=== PATIENT | male | born 1945 | race Caucasian/White ===

== ENCOUNTER → 2016-06-25 | Day surgery (SDC) | payer OTHER ==
[~2016-06-25] VITALS: Ht 177.8 cm; Wt 103.0 kg
[~2016-06-25] MED LIST: ASPCH81X PO; BROM0.0911 OPR; CHOL4POW11 PO; CHOL4POW12; CLX20 PO; GABA1CAP5 PO; GABA600T PO; GLC/500 PO; LISI5TAB3 PO; MAGN400T6 PO; METFPOW PO; NTRGSL/4 UT; OMEG10007 PO; OMEP40CA PO; PILO5TAB10 PO; PRED1SUS OPR; WLC625 PO
[2016-06-25 12:31] VITALS: BP 149/82; PULSE 65; TEMP 36.5; Ht 177.8 cm; Wt 103.0 kg
--- NOTE | 2016-06-25 13:44 | OPERATIVE REPORT ---
DATE OF OPERATION: 06/25/2016 INDICATIONS FOR TILT TESTING: History of orthostatic hypotension and syncope. HISTORY OF PRESENT ILLNESS: This is a 71-year-old male who has had a number of episodes of syncope, he describes 4 episodes in 2016 and one more recently. This last one resulted in a sudden fall and injury. He has had an evaluation in the past including an event monitor during which he had a syncopal event without any arrhythmia or pause. Apparently, the rhythm was sinus during that episode. He has had his FRANCES inhibitor discontinued to help with orthostatic hypotension and his metoprolol reduced. He now presents for a tilt test to evaluate for orthostasis and vagal episodes. DESCRIPTION OF PROCEDURE: After obtaining informed consent for the procedure, he was placed on the tilt test, he remained flat for 15 minutes to allow calibration. The head of the bed was then tilted upright to 70 degrees and he remained in this position for 35 minutes upon which the bed was returned to supine. During this time, blood pressure was performed noninvasively and continuous heart rate and pulse oximetry were performed. FINDINGS: His baseline blood pressure prior to tilt was 149/82 with a heart rate of 64, oxygen saturation 96%. Immediately on a train obtaining a 70 degree upright tilt, his blood pressure was 148/85 with a heart rate of 67, and pulse ox of 94%. The blood pressure dropped slightly throughout the tilt to a low at 30 minutes of 128/73, heart rate remained unchanged at 67 and pulse oximetry unchanged at 93. He remained for 5 more minutes to see if that was a trend. However, his blood pressure was 130/81, heart rate 70 and pulse oximetry 92. He had been asymptomatic throughout. The head of the bed was placed supine at that point and his blood pressure on returning to supine position was 134/73, heart rate 62 and oxygen saturation 94%. At the conclusion of the tilt test, right and left carotid sinus massage was performed. With right carotid massage, his heart rate dropped to 57; with left carotid massage, his heart rate dropped to 61, no presyncopal symptoms. IMPRESSION: Essentially normal tilt test. Although his blood pressure dropped slightly during upright tilt, it did not rebound when being placed supine and did not meet criteria for orthostatic hypotension. His heart rate did not change significantly during the test. There was no evidence of right or left carotid sinus hypersensitivity. [facility]
== END | disposition home or self-care (01) ==
LOC: C.CATH 12:05
PROVIDERS: ATTEND Internal Medicine Cardiovascular Disease
DX: R55 Syncope and collapse (principal); I95.1 Orthostatic hypotension; I25.10 Atherosclerotic heart disease of native coronary artery without angina pectoris; I10 Essential (primary) hypertension; Z83.3 Family history of diabetes mellitus; Z82.49 Family history of ischemic heart disease and other diseases of the circulatory system; E11.9 Type 2 diabetes mellitus without complications; K21.9 Gastro-esophageal reflux disease without esophagitis; E78.5 Hyperlipidemia, unspecified; Z79.82 Long term (current) use of aspirin; Z79.899 Other long term (current) drug therapy; Z88.8 Allergy status to other drugs, medicaments and biological substances

== ENCOUNTER → 2016-08-21 | Day surgery (SDC) | payer OTHER ==
[2016-07-30 15:26] VITALS: Ht 177.8 cm; Wt 102.7 kg
[~2016-08-21] VITALS: Ht 177.8 cm; Wt 102.7 kg
[~2016-08-21] MED LIST changes: +500ML BSS 0.3ML EPI 1:1000PF IRRIG ONE; +ACETAMINOPHEN 325 MG TAB PO PRN; +AMVISC PLUS 0.8ML SYRINGE INT OCU ONE; +ATROPINE SULFATE 0.1 MG/ML 5ML SYR IV PRN; +BSS FLUSH ONE; -CHOL4POW12; +ENDOCOAT 0.85ML SYRINGE INT OCU ONE; +EpHEDrine SULFATE INJ 50 MG/ML AMP IV PRN; +EpINEphrine INJ 1MG/ML AMP 1 MG/ML AMP ONE; -GABA1CAP5 PO; +LACTATED RINGER'S 1000ML 500 ML IV SCH; +LIDOCAINE 4% OP SOLN DROP CHARGE ONE; +LIDOCAINE 4% OP SOLN DROP CHARGE OPR SCH; +LIDOCAINE HCL 1% MPF 2 ML VIAL ONE; -LISI5TAB3 PO; -METFPOW PO; +MIDAZOLAM HCL 1 MG/ML 2ML VIAL ONE; +MIX: 4ML BSS 1ML EPI 1:1000 PF TOP ONE; +MOXIFLOXACIN OPH SOLN PER DROP CHARGE ONE; -OMEG10007 PO; -OMEP40CA PO; -PILO5TAB10 PO; +POVIDONE-IODINE OP SOLN 30 ML BTL ONE; +PROPARACAINE 0.5% OP SOLN PER DROP CHARGE OPR SCH; +TOBRAMYCIN/DEXAMETHASONE OPH OINT PER APPLN CHARGE ONE; -WLC625 PO
[2016-08-21] MEDS: PHENYLEPHRINE HCL 2.5% OP SOLN PER DROP CHARGE OPR SCH ×3 (08:53→09:03)
[2016-08-21] MEDS: TROPICAMIDE 1% OP SOLN PER DROP CHARGE OPR SCH ×3 (08:54→09:04)
[2016-08-21] MEDS: CYCLOPENTOLATE HCL 1% OP SOLN PER DROP CHARGE OPR SCH ×3 (08:55→09:05)
[2016-08-21] MEDS: MOXIFLOXACIN OPH SOLN PER DROP CHARGE OPR SCH ×3 (08:56→09:06)
--- NOTE | 2016-08-21 09:09 | History & Physical Bridge - SC ---
H&P Re-Evaluation Bridge Note: I have examined the patient, reviewed the History & Physical and in the interval since the performance of the History & Physical I have noted the following changes of clinical significance: No changes noted
--- NOTE | 2016-08-21 10:09 | [facility] Post Operative Brief Note ---
Immediate Operative Summary Operative Date Aug 21, 2016. Pre-Operative Diagnosis Cataract Right Eye Post-Operative Diagnosis Same Procedure(s) Performed Right Cataract Phacoemulsification With Intraocular Lens Implant Surgeon Dr. Landers Greenhouse Laborer Surgeon(s) None Estimated Blood Loss 0 Findings right cataract Specimens None Complication(s) None Disposition
--- NOTE | 2016-08-21 10:10 | [facility] Operative Report ---
Operative Report Date of Service Aug 21, 2016. Operative Report Phaco with monofocal IOL DATE OF OPERATION: 08/21/16 PREOPERATIVE DIAGNOSIS: Senile nuclear cataract, right eye POSTOPERATIVE DIAGNOSIS: Senile nuclear cataract, right eye PROCEDURE PERFORMED: Phacoemulsification with intraocular lens implantation, right eye SURGEON: Dr. Owen Landers ANESTHESIA: Topical with 1% intracameral lidocaine and monitored anesthesia care COMPLICATIONS: None DESCRIPTION OF PROCEDURE: After positively identifying the patient both verbally and by wristband in the preoperative area, the right eye was marked as the operative eye. The patient was then brought back to the operating room by the anesthesia and nursing staff where they were given a drop of Lidocaine and betadine into the operative eye. They were then sterilely prepped and draped in the standard fashion typical for ophthalmic surgery. Steri-strips were placed along the upper eyelids to keep the lashes back, and a lid speculum was placed into the operative eye. At this point, a documented time out was performed with members of the ophthalmology, nursing, and anesthesia staffs all agreeing upon the correct patient, correct location for surgery, correct procedure, and correct type and power of intraocular lens to be implanted. The microscope was then swung into position. First, a paracentesis wound was made using a sideport blade. Then, in sequence, 1% preservative-free lidocaine followed by Endocoat viscoelastic was injected into the anterior chamber. Next , the main incision was made with a keratome blade in triplanar fashion. A sharp cystotome was introduced into the eye and used to create a tear in the anterior capsule, which was directed into a continuous curvilinear capsulorrhexis using Utrata forceps. Hydrodissection was then performed with BSS on a flat-tip cannula. Next, the phacoemulsification handpiece was introduced into the eye and used to remove the nucleus in a [id number] fashion. This was done without complication and then the irrigation-aspiration handpiece was introduced into the eye and used to remove all remaining cortical and epinuclear material. Amvisc was then injected into the anterior chamber as well as into the capsular bag and using the lens injector system, an MX60 20.0 D lens, serial number [id number], and expiration date 04/2019 was injected into the capsular bag and rotated into the correct position. Next, the irrigation- aspiration handpiece was used to remove all remaining Amvisc. BSS was used to hydrate the main wound, and then BSS was injected into the paracentesis site to reach physiologic pressure and then the main wound was checked and found to be watertight. The patient was given drops of Vigamox and Tobradex ointment into the operative eye, and then the surrounding area was cleaned and dried. A clear plastic shield was placed over the eye and the patient was then sat up and taken from the operating room by the anesthesia staff having tolerated the procedure well and suffering no complications. DISPOSITION: The patient was returned to the recovery room in stable condition. I attest to the content of the Intraoperative Record and any orders documented therein. Any exceptions are noted below.
--- NOTE | 2016-08-21 10:11 | Discharge Instructions-SurgCtr ---
Discharge Instructions Date of Service Aug 21, 2016. Visit Reason for Visit: Cataract Right Eye Discharge Discharge Diagnosis / Problem: right cataract Discharge Goals Goal(s): Decrease discomfort, Improve function Medications Stopped Medications Name(s): Stopped Metformin Activity Recommendations Activity Limitations: as noted below Anesthesia . Post Anesthesia Instructions: If you have had General Anesthesia or IV Sedation: * Do not drive today. * Resume driving when surgeon permits. * Do not make important decisions or sign legal documents today. * Call surgeon for: 1. Temperature elevations greater than 101 degrees F. 2. Uncontrollable pain. 3. Excessive bleeding. 4. Persistent nausea and vomiting. 5. Medication intolerance (nausea, vomiting or rash). * For nausea and vomiting use only clear liquids such as: tea, soda, bouillon until nausea subsides, then gradually increase diet as tolerated. * If you have any concerns or questions, call your surgeon's office. If physician is unavailable and it is an emergency, call 911 or go to the nearest emergency room. . Instructions / Follow-Up Instructions / Follow-Up ACTIVITY RECOMMENDATIONS: * Light activities. * You may walk outside, read, watch television. * You may notice redness on the white part of the eye and some blurry vision - this is normal. MEDICATIONS: Resume previous medications unless instructed otherwise by your surgeon. Start all eye drops at 12:30 pm today: * Eye drops (today): Prednisone - one drop in operative eye every 2 hours while awake Ofloxacin - one drop in operative eye every 2 hours while awake Bromfenac - one drop in operative eye daily SPECIAL CARE INSTRUCTIONS: * Tape plastic shield over eye to sleep at night. Call your doctor at with any concerns or problems. FOLLOW UP VISIT: Follow-up with Dr Landers at [place] office as scheduled. Diet Recommendations Home Diet: no limitations Procedures Procedures Performed: Right Cataract Phacoemulsification With Intraocular Lens Implant Pending Studies Studies pending at discharge: no Medical Emergencies . Who to Call and When: Medical Emergencies: If at any time you feel your situation is an emergency, please call 911 immediately. . Non-Emergent Contact Non-Emergency issues call your: Surgeon . . "Provider Documentation" section prepared by Owen Landers.
[2016-08-21 10:12] VITALS: TEMP 36.6
--- NOTE | 2016-08-21 10:34 | Anesthesia Progress Nt - [facility] ---
Anesthesia Post Op Note Date & Time Aug 21, 2016 at 10:35 Vital Signs Pain Intensity: 0 Vital Signs Past 12 Hours Date Time Temp Pulse Resp B/P Pulse Ox O2 Delivery O2 Flow Rate FiO2 08/21/16 10:12 36.6 60 16 156/92 98 Room Air 08/21/16 09:10 36.8 62 20 160/84 97 Room Air Notes Mental Status: alert / awake / arousable, participated in evaluation Pt Amnestic to Procedure: Yes Nausea / Vomiting: adequately controlled Pain: adequately controlled Airway Patency, RR, SpO2: stable & adequate BP & HR: stable & adequate Hydration State: stable & adequate Anesthetic Complications: no major complications apparent
[2016-08-21 10:37] VITALS: BP 142/82; PULSE 57; O2SAT 96
== END | disposition home or self-care (01) ==
LOC: X.SURG 08:35
PROVIDERS: ATTEND Ophthalmology
DX: H25.11 Age-related nuclear cataract, right eye (principal); I10 Essential (primary) hypertension; E11.9 Type 2 diabetes mellitus without complications; I51.9 Heart disease, unspecified

== ENCOUNTER → 2016-09-02 | Outpatient (CLI) | payer OTHER ==
[~2016-09-02] MED LIST changes: -500ML BSS 0.3ML EPI 1:1000PF IRRIG ONE; -ACETAMINOPHEN 325 MG TAB PO PRN; -AMVISC PLUS 0.8ML SYRINGE INT OCU ONE; -ATROPINE SULFATE 0.1 MG/ML 5ML SYR IV PRN; -BSS FLUSH ONE; -ENDOCOAT 0.85ML SYRINGE INT OCU ONE; -EpHEDrine SULFATE INJ 50 MG/ML AMP IV PRN; -EpINEphrine INJ 1MG/ML AMP 1 MG/ML AMP ONE; -LACTATED RINGER'S 1000ML 500 ML IV SCH; -LIDOCAINE 4% OP SOLN DROP CHARGE ONE; -LIDOCAINE 4% OP SOLN DROP CHARGE OPR SCH; -LIDOCAINE HCL 1% MPF 2 ML VIAL ONE; -MIDAZOLAM HCL 1 MG/ML 2ML VIAL ONE; -MIX: 4ML BSS 1ML EPI 1:1000 PF TOP ONE; -MOXIFLOXACIN OPH SOLN PER DROP CHARGE ONE; -POVIDONE-IODINE OP SOLN 30 ML BTL ONE; -PROPARACAINE 0.5% OP SOLN PER DROP CHARGE OPR SCH; -TOBRAMYCIN/DEXAMETHASONE OPH OINT PER APPLN CHARGE ONE
[2016-09-02 14:05] LABS: ESTIMATED AVERAGE GLUCOSE 166 mg/dl; HA1C FLAG Normal (Normal)
[2016-09-02 14:44] LABS: ALT/SGPT 59 U/L (12-78); AST/SGOT 48 U/L (15-37); BLOOD UREA NITROGEN 16 mg/dl (7-18); BUN/CREATININE RATIO 17.2 (10-20); CALCIUM 9.1 mg/dl (8.5-10.1); CARBON DIOXIDE 30 mmol/L (21-32); CHLORIDE 104 mmol/L (98-107); CHOLESTEROL 228 mg/dl (0-200); CREATININE 0.93 mg/dl (0.60-1.40); GLUCOSE 161 mg/dl (70-99); MAGNESIUM 2.1 mg/dl (1.8-2.4); SODIUM 139 mmol/L (136-145); TRIGLYCERIDES 218 mg/dl (0-150); VERY LOW DENSITY LIPOPROT CALC 44 mg/dl
[2016-09-02 15:11] LABS: ALB/GLOB RATIO 1.2 (0.9-2); ALKALINE PHOSPHATASE 74 U/L (45-117); CHOLESTEROL/HDL RATIO 4.9; HDL CHOLESTEROL 47 mg/dl; LDL CHOLESTEROL CALCULATED 137 mg/dl
== END | disposition home or self-care (01) ==
LOC: C.LABMFLN 08:49
PROVIDERS: ATTEND Family Medicine
DX: E11.9 Type 2 diabetes mellitus without complications (principal); E78.5 Hyperlipidemia, unspecified; I10 Essential (primary) hypertension; E83.42 Hypomagnesemia; R55 Syncope and collapse

== ENCOUNTER → 2016-09-04 | Day surgery (SDC) | payer OTHER ==
[2016-09-03 07:46] VITALS: Ht 177.8 cm; Wt 102.7 kg
[~2016-09-04] VITALS: Ht 177.8 cm; Wt 102.7 kg
[~2016-09-04] MED LIST changes: +500ML BSS 0.3ML EPI 1:1000PF IRRIG ONE; +ACETAMINOPHEN 325 MG TAB PO PRN; +AMVISC PLUS 0.8ML SYRINGE INT OCU ONE; +ATROPINE SULFATE 0.1 MG/ML 5ML SYR IV PRN; +BSS FLUSH ONE; +ENDOCOAT 0.85ML SYRINGE INT OCU ONE; +EpHEDrine SULFATE INJ 50 MG/ML AMP IV PRN; +EpINEphrine INJ 1MG/ML AMP 1 MG/ML AMP ONE; +FENTANYL CITRATE INJ 50 MCG/1 ML 2 ML VIAL IV PRN; +FLUMAZENIL 0.1 MG/1 ML 10 ML VIAL IV PRN; +HYDROmorphone INJ 2 MG/ML SYR/VIAL IV PRN; +LABETALOL HCL IV 5 MG/ML 20ML IV PRN; +LACTATED RINGER'S 1000ML 500 ML IV SCH; +LIDOCAINE 4% OP SOLN DROP CHARGE ONE; +LIDOCAINE 4% OP SOLN DROP CHARGE OPL SCH; +LIDOCAINE HCL 1% MPF 2 ML VIAL ONE; +MEPERIDINE HCL 25 MG/ML CARP IV PRN; +MIDAZOLAM HCL 1 MG/ML 2ML VIAL ONE; +MIX: 4ML BSS 1ML EPI 1:1000 PF TOP ONE; +MOXIFLOXACIN OPH SOLN PER DROP CHARGE ONE; +NALOXONE HCL 0.4 MG/1 ML VIAL/CARP IV PRN; +ONDANSETRON INJ 2 MG/ML 2 ML VIAL IV PRN; +PHENYLEPHRINE 100MCG/ML 5ML SYR IV PRN; +POVIDONE-IODINE OP SOLN 30 ML BTL ONE; +PROPARACAINE 0.5% OP SOLN PER DROP CHARGE OPL SCH; +TOBRAMYCIN/DEXAMETHASONE OPH OINT PER APPLN CHARGE ONE
[2016-09-04] MEDS: PHENYLEPHRINE HCL 2.5% OP SOLN PER DROP CHARGE OPL SCH ×3 (09:04→09:14)
[2016-09-04] MEDS: TROPICAMIDE 1% OP SOLN PER DROP CHARGE OPL SCH ×3 (09:05→09:15)
[2016-09-04] MEDS: CYCLOPENTOLATE HCL 1% OP SOLN PER DROP CHARGE OPL SCH ×3 (09:06→09:16)
[2016-09-04] MEDS: MOXIFLOXACIN OPH SOLN PER DROP CHARGE OPL SCH ×3 (09:07→09:27)
--- NOTE | 2016-09-04 09:21 | History & Physical Bridge - SC ---
H&P Re-Evaluation Bridge Note: I have examined the patient, reviewed the History & Physical and in the interval since the performance of the History & Physical I have noted the following changes of clinical significance: No changes noted. He is going to be having cataract surgery on his left eye today.
--- NOTE | 2016-09-04 10:07 | [facility] Post Operative Brief Note ---
Immediate Operative Summary Operative Date Sep 04, 2016. Pre-Operative Diagnosis Left Eye Cataract Post-Operative Diagnosis SAME Procedure(s) Performed Left Cataract Phacoemulsification With Intraocular Lens Implant Surgeon Dr Landers Gearcase Assembler Surgeon(s) none Estimated Blood Loss 0 Findings left cataract Specimens none Complication(s) None Disposition
[2016-09-04 10:08] VITALS: TEMP 36.3
--- NOTE | 2016-09-04 10:08 | [facility] Operative Report ---
Operative Report Date of Service Sep 04, 2016. Operative Report Phaco with monofocal IOL DATE OF OPERATION: 09/04/16 PREOPERATIVE DIAGNOSIS: Senile nuclear cataract, left eye POSTOPERATIVE DIAGNOSIS: Senile nuclear cataract, left eye PROCEDURE PERFORMED: Phacoemulsification with intraocular lens implantation, left eye SURGEON: Dr. Owen Landers ANESTHESIA: Topical with 1% intracameral lidocaine and monitored anesthesia care COMPLICATIONS: None DESCRIPTION OF PROCEDURE: After positively identifying the patient both verbally and by wristband in the preoperative area, the left eye was marked as the operative eye. The patient was then brought back to the operating room by the anesthesia and nursing staff where they were given a drop of Lidocaine and betadine into the operative eye. They were then sterilely prepped and draped in the standard fashion typical for ophthalmic surgery. Steri-strips were placed along the upper eyelids to keep the lashes back, and a lid speculum was placed into the operative eye. At this point, a documented time out was performed with members of the ophthalmology, nursing, and anesthesia staffs all agreeing upon the correct patient, correct location for surgery, correct procedure, and correct type and power of intraocular lens to be implanted. The microscope was then swung into position. First, a paracentesis wound was made using a sideport blade. Then, in sequence, 1% preservative-free lidocaine followed by Endocoat viscoelastic was injected into the anterior chamber. Next , the main incision was made with a keratome blade in triplanar fashion. A sharp cystotome was introduced into the eye and used to create a tear in the anterior capsule, which was directed into a continuous curvilinear capsulorrhexis using Utrata forceps. Hydrodissection was then performed with BSS on a flat-tip cannula. Next, the phacoemulsification handpiece was introduced into the eye and used to remove the nucleus in a [id number] fashion. This was done without complication and then the irrigation-aspiration handpiece was introduced into the eye and used to remove all remaining cortical and epinuclear material. Amvisc was then injected into the anterior chamber as well as into the capsular bag and using the lens injector system, an MX60 21.5 D lens, serial number [id number], and expiration date 01/2019 was injected into the capsular bag and rotated into the correct position. Next, the irrigation- aspiration handpiece was used to remove all remaining Amvisc. BSS was used to hydrate the main wound, and then BSS was injected into the paracentesis site to reach physiologic pressure and then the main wound was checked and found to be watertight. The patient was given drops of Vigamox and Tobradex ointment into the operative eye, and then the surrounding area was cleaned and dried. A clear plastic shield was placed over the eye and the patient was then sat up and taken from the operating room by the anesthesia staff having tolerated the procedure well and suffering no complications. DISPOSITION: The patient was returned to the recovery room in stable condition. I attest to the content of the Intraoperative Record and any orders documented therein. Any exceptions are noted below.
--- NOTE | 2016-09-04 10:09 | Discharge Instructions-SurgCtr ---
Discharge Instructions Date of Service Sep 04, 2016. Visit Reason for Visit: Left Cataract Discharge Discharge Diagnosis / Problem: left cataract Discharge Goals Goal(s): Decrease discomfort, Improve function Activity Recommendations Activity Limitations: as noted below Anesthesia . Post Anesthesia Instructions: If you have had General Anesthesia or IV Sedation: * Do not drive today. * Resume driving when surgeon permits. * Do not make important decisions or sign legal documents today. * Call surgeon for: 1. Temperature elevations greater than 101 degrees F. 2. Uncontrollable pain. 3. Excessive bleeding. 4. Persistent nausea and vomiting. 5. Medication intolerance (nausea, vomiting or rash). * For nausea and vomiting use only clear liquids such as: tea, soda, bouillon until nausea subsides, then gradually increase diet as tolerated. * If you have any concerns or questions, call your surgeon's office. If physician is unavailable and it is an emergency, call 911 or go to the nearest emergency room. . Instructions / Follow-Up Instructions / Follow-Up ACTIVITY RECOMMENDATIONS: * Light activities. * You may walk outside, read, watch television. * You may notice redness on the white part of the eye and some blurry vision - this is normal. MEDICATIONS: Resume previous medications unless instructed otherwise by your surgeon. Start all eye drops at 12:00 pm today: * Eye drops (today): Prednisone - one drop in operative eye every 2 hours while awake Ofloxacin - one drop in operative eye every 2 hours while awake Bromfenac - one drop in operative eye daily SPECIAL CARE INSTRUCTIONS: * Tape plastic shield over eye to sleep at night. Call your doctor at with any concerns or problems. FOLLOW UP VISIT: Follow-up with Dr Landers at [facility] as scheduled. Diet Recommendations Home Diet: no limitations Procedures Procedures Performed: Left Cataract Phacoemulsification With Intraocular Lens Implant Pending Studies Studies pending at discharge: no Medical Emergencies . Who to Call and When: Medical Emergencies: If at any time you feel your situation is an emergency, please call 911 immediately. . Non-Emergent Contact Non-Emergency issues call your: Surgeon . . "Provider Documentation" section prepared by Owen Landers.
[2016-09-04 10:35] VITALS: BP 137/81; PULSE 61; O2SAT 96
--- NOTE | 2016-09-04 10:40 | Anesthesia Progress Nt - [facility] ---
Anesthesia Post Op Note Date & Time Sep 04, 2016 at 10:40 Vital Signs Pain Intensity: 0 Vital Signs Past 12 Hours Date Time Temp Pulse Resp B/P Pulse Ox O2 Delivery O2 Flow Rate FiO2 09/04/16 10:08 36.3 58 16 147/83 98 Room Air 09/04/16 08:56 36.7 63 16 151/84 97 Room Air Notes Mental Status: alert / awake / arousable, participated in evaluation Pt Amnestic to Procedure: Yes Nausea / Vomiting: adequately controlled Pain: adequately controlled Airway Patency, RR, SpO2: stable & adequate BP & HR: stable & adequate Hydration State: stable & adequate Anesthetic Complications: no major complications apparent
== END | disposition home or self-care (01) ==
LOC: X.SURG 08:26
PROVIDERS: ATTEND Ophthalmology
DX: H25.12 Age-related nuclear cataract, left eye (principal); I10 Essential (primary) hypertension; E11.9 Type 2 diabetes mellitus without complications; I51.9 Heart disease, unspecified; Z83.3 Family history of diabetes mellitus

== ENCOUNTER → 2017-02-03 | Outpatient (CLI) | payer OTHER ==
[~2017-02-03] MED LIST changes: -500ML BSS 0.3ML EPI 1:1000PF IRRIG ONE; -ACETAMINOPHEN 325 MG TAB PO PRN; -AMVISC PLUS 0.8ML SYRINGE INT OCU ONE; -ATROPINE SULFATE 0.1 MG/ML 5ML SYR IV PRN; -BSS FLUSH ONE; -ENDOCOAT 0.85ML SYRINGE INT OCU ONE; -EpHEDrine SULFATE INJ 50 MG/ML AMP IV PRN; -EpINEphrine INJ 1MG/ML AMP 1 MG/ML AMP ONE; -FENTANYL CITRATE INJ 50 MCG/1 ML 2 ML VIAL IV PRN; -FLUMAZENIL 0.1 MG/1 ML 10 ML VIAL IV PRN; -HYDROmorphone INJ 2 MG/ML SYR/VIAL IV PRN; -LABETALOL HCL IV 5 MG/ML 20ML IV PRN; -LACTATED RINGER'S 1000ML 500 ML IV SCH; -LIDOCAINE 4% OP SOLN DROP CHARGE ONE; -LIDOCAINE 4% OP SOLN DROP CHARGE OPL SCH; -LIDOCAINE HCL 1% MPF 2 ML VIAL ONE; -MEPERIDINE HCL 25 MG/ML CARP IV PRN; -MIDAZOLAM HCL 1 MG/ML 2ML VIAL ONE; -MIX: 4ML BSS 1ML EPI 1:1000 PF TOP ONE; -MOXIFLOXACIN OPH SOLN PER DROP CHARGE ONE; -NALOXONE HCL 0.4 MG/1 ML VIAL/CARP IV PRN; -ONDANSETRON INJ 2 MG/ML 2 ML VIAL IV PRN; -PHENYLEPHRINE 100MCG/ML 5ML SYR IV PRN; -POVIDONE-IODINE OP SOLN 30 ML BTL ONE; -PROPARACAINE 0.5% OP SOLN PER DROP CHARGE OPL SCH; -TOBRAMYCIN/DEXAMETHASONE OPH OINT PER APPLN CHARGE ONE
[2017-02-03 13:26] LABS: ALT/SGPT 67 U/L (12-78); BLOOD UREA NITROGEN 12 mg/dl (7-18); BUN/CREATININE RATIO 14.1 (10-20); CALCIUM 9.1 mg/dl (8.5-10.1); CARBON DIOXIDE 28 mmol/L (21-32); CHLORIDE 104 mmol/L (98-107); CHOLESTEROL 197 mg/dl (0-200); CREATININE 0.83 mg/dl (0.60-1.40); GLUCOSE 147 mg/dl (70-99); POTASSIUM 4.4 mmol/L (3.5-5.1); SODIUM 138 mmol/L (136-145)
[2017-02-03 13:33] LABS: ALB/GLOB RATIO 1.1 (0.9-2); ALKALINE PHOSPHATASE 66 U/L (45-117); AST/SGOT 59 U/L (15-37); CHOLESTEROL/HDL RATIO 4.2; HDL CHOLESTEROL 47 mg/dl; LDL CHOLESTEROL CALCULATED 118 mg/dl; PROSTATE SPECIFIC ANTIGEN 0.932 ng/ml (0.000-4.000); TRIGLYCERIDES 158 mg/dl (0-150); VERY LOW DENSITY LIPOPROT CALC 32 mg/dl
[2017-02-03 13:35] LABS: ESTIMATED AVERAGE GLUCOSE 177 mg/dl; HA1C FLAG Normal (Normal)
[2017-02-03 13:49] LABS: RATIO 10.8 mcg/mg (0-30.0)
== END | disposition home or self-care (01) ==
LOC: C.LABMFLN 08:42
PROVIDERS: ATTEND Family Medicine
DX: E78.5 Hyperlipidemia, unspecified (principal); I25.10 Atherosclerotic heart disease of native coronary artery without angina pectoris; E11.51 Type 2 diabetes mellitus with diabetic peripheral angiopathy without gangrene; Z12.5 Encounter for screening for malignant neoplasm of prostate; E83.42 Hypomagnesemia

== ENCOUNTER → 2017-02-10 | Outpatient (CLI) | payer OTHER ==
[2017-02-10 18:19] LABS: BASO % 0.5 %; BASO ABS # 0.03 K/uL (0-0.2); COMPLETE YES; EOS % 3.2 %; HEMATOCRIT 39.5 % (42-52); IG% 0.4 %; LYMPH % 18.8 %; LYMPH ABS # 1.05 K/uL (1.2-3.4); MEAN CELL VOLUME 92.3 fL (80-100); MEAN CORPUSCULAR HEMOGLOBIN 31.1 pg (25-34); MEAN CORPUSCULAR HGB CONC 33.7 g/dl (32-36); MEAN PLATELET VOLUME 9.2 fL (7.4-10.4); MONO % 9.5 %; NEUT % 67.6 %; PLATELET COUNT 321 K/uL (130-400); RED BLOOD COUNT 4.28 M/uL (4.7-6.1); WHITE BLOOD COUNT 5.58 K/uL (4.8-10.8)
== END | disposition home or self-care (01) ==
LOC: C.LABMFLN 11:42
PROVIDERS: ATTEND Family Medicine
DX: R06.09 Other forms of dyspnea (principal)

== ENCOUNTER → 2017-06-10 | Outpatient (CLI) | payer OTHER ==
[2017-06-10 13:22] LABS: HEMOGLOBIN A1C 7.7 % (4.5-5.6)
[2017-06-10 13:33] LABS: ALBUMIN 3.8 gm/dl (3.4-5.0); ALT/SGPT 93 U/L (12-78); BLOOD UREA NITROGEN 17 mg/dl (7-18); CALCIUM 9.3 mg/dl (8.5-10.1); CARBON DIOXIDE 29 mmol/L (21-32); CHOLESTEROL 250 mg/dl (0-200); CREATININE 0.93 mg/dl (0.60-1.40); GLUCOSE 178 mg/dl (70-99); POTASSIUM 4.7 mmol/L (3.5-5.1); SODIUM 137 mmol/L (136-145)
[2017-06-10 13:36] LABS: ALKALINE PHOSPHATASE 52 U/L (45-117); AST/SGOT 70 U/L (15-37); LDL CHOLESTEROL CALCULATED 173 mg/dl; TOTAL PROTEIN 6.9 gm/dl (6.4-8.2)
== END | disposition home or self-care (01) ==
LOC: C.LABMFLN 07:07
PROVIDERS: ATTEND Family Medicine
DX: E11.9 Type 2 diabetes mellitus without complications (principal); E78.5 Hyperlipidemia, unspecified; I10 Essential (primary) hypertension; E83.42 Hypomagnesemia

== ENCOUNTER → 2017-10-07 | Outpatient (CLI) | payer OTHER ==
[2017-10-07 14:05] LABS: HEMOGLOBIN A1C 6.5 % (4.5-5.6)
[2017-10-07 14:56] LABS: ALBUMIN 3.6 gm/dl (3.4-5.0); ALT/SGPT 155 U/L (12-78); AST/SGOT 125 U/L (15-37); BLOOD UREA NITROGEN 12 mg/dl (7-18); CALCIUM 9.2 mg/dl (8.5-10.1); CARBON DIOXIDE 30 mmol/L (21-32); CHOLESTEROL 190 mg/dl (0-200); CREATININE 0.76 mg/dl (0.60-1.40); GLUCOSE 126 mg/dl (70-99); POTASSIUM 4.4 mmol/L (3.5-5.1); SODIUM 139 mmol/L (136-145)
[2017-10-07 15:03] LABS: ALKALINE PHOSPHATASE 59 U/L (45-117); LDL CHOLESTEROL CALCULATED 110 mg/dl; TOTAL PROTEIN 6.9 gm/dl (6.4-8.2)
== END | disposition home or self-care (01) ==
LOC: C.LABMFLN 08:23
PROVIDERS: ATTEND Family Medicine
DX: E78.5 Hyperlipidemia, unspecified (principal); I10 Essential (primary) hypertension; K76.0 Fatty (change of) liver, not elsewhere classified; E11.51 Type 2 diabetes mellitus with diabetic peripheral angiopathy without gangrene; E83.42 Hypomagnesemia

== ENCOUNTER → 2017-12-18 | Outpatient (CLI) | payer OTHER ==
[2017-12-18 18:22] LABS: ALBUMIN 3.8 gm/dl (3.4-5.0); TOTAL PROTEIN 6.7 gm/dl (6.4-8.2)
== END | disposition home or self-care (01) ==
LOC: C.LABMFLN 15:19
PROVIDERS: ATTEND Internal Medicine Gastroenterology
DX: R94.5 Abnormal results of liver function studies (principal)

== ENCOUNTER → 2018-01-13 | Outpatient (CLI) | payer OTHER ==
[2018-01-13 13:34] LABS: HEMOGLOBIN A1C 7.3 % (4.5-5.6)
[2018-01-13 14:14] LABS: ALBUMIN 3.7 gm/dl (3.4-5.0); ALKALINE PHOSPHATASE 60 U/L (45-117); ALT/SGPT 177 U/L (12-78); AST/SGOT 118 U/L (15-37); BLOOD UREA NITROGEN 13 mg/dl (7-18); CALCIUM 9.5 mg/dl (8.5-10.1); CARBON DIOXIDE 28 mmol/L (21-32); CHOLESTEROL 202 mg/dl (0-200); CREATININE 0.85 mg/dl (0.60-1.40); GLUCOSE 159 mg/dl (70-99); LDL CHOLESTEROL CALCULATED 124 mg/dl; POTASSIUM 4.2 mmol/L (3.5-5.1); SODIUM 137 mmol/L (136-145); TOTAL PROTEIN 7.2 gm/dl (6.4-8.2)
== END | disposition home or self-care (01) ==
LOC: C.LABMFLN 09:40
PROVIDERS: ATTEND Family Medicine
DX: E11.51 Type 2 diabetes mellitus with diabetic peripheral angiopathy without gangrene (principal); R74.0 Nonspecific elevation of levels of transaminase and lactic acid dehydrogenase [LDH]

== ENCOUNTER 2018-08-27 09:20 | Observation (INO) ==
--- NOTE | 2018-08-27 11:23 | History & Physical Bridge Note ---
Date of Service August 27, 2018 History & Physical Bridge Note I have examined the patient, reviewed the History & Physical and in the interval since the performance of the History & Physical I have noted the following changes of clinical significance: Symptoms have improved on nitrate therapy, but anginal symptoms continue to occur. Otherwise, no changes noted.
--- NOTE | 2018-08-27 11:24 | Pre Anesthesia Assessment ---
Date of Service August 27, 2018 Pre Sedation Assessment Vital Signs Temp Pulse Resp BP Pulse Ox 08/27/18 10:38 36.6 C 61 18 171/80 H 97 Cardiovascular + bradycardic Respiratory normal respiratory effort, lungs clear to auscultation Pre-Sedation Airway Assessment Smoking Status: Never smoker Hx Sleep Apnea: No Short, Thick Neck: No Thyromental Distance: > or= 3.5 Finger Breadths Oral Cavity: + WNL Mallampati Class: III ASA: ASA3 NPO Status Date of Last Intake of Fluids: 08/26/18 Time of Last Intake of Fluids: 19:00 Date of Last Intake of Solid Food: 08/26/18 Time of Last Intake of Solid Foods: 19:00 Procedure Planning Contraindications for Sedation: none Current Medications Reviewed: Yes Notes The planned sedation has been discussed with the patient. Informed Consent was obtained. I have identified the patient, determined the appropriateness of sedation and have assessed the patient immediately prior to the procedure. All medicine(s) and interventions are by my order.
[2018-08-27] MEDS ORDERED: NiCARDipine HCL INJ 2.5 MG/ML 10 ML AMP ONE (12:53)
[2018-08-27] MEDS ORDERED: HEPARIN (PORCINE) 1000 UNIT/ML 10 ML (CATH LAB USE ONLY) ONE (12:53)
[2018-08-27] MEDS ORDERED: MIDAZOLAM HCL 1 MG/ML 2ML VIAL ONE (12:53)
[2018-08-27] MEDS ORDERED: fentaNYL citrate 100 MCG/2 ML VIAL ONE (12:53)
[2018-08-27] MEDS ORDERED: NITROGLYCERIN/D5W 100MCG/ML 20ML SYR ONE (12:54)
--- NOTE | 2018-08-27 14:45 | Cardiac Catheterization ---
Cardiac Cath Procedure Full Procedure Date August 27, 2018 Pre-Procedure Diagnosis Pre-Procedure Diagnosis: Angina and CAD AUC Score AUC Score: 7 Post-Procedure Diagnosis Post-Procedure Diagnosis: Severe CAD Procedure(s) Performed Procedure(s) Performed: Coronary Angiography Tray Setter Emiliano Cash MD Financial Assistance Specialist(s) Twin Ambrosio Estimated Blood Loss Estimated Blood Loss: < 25 ml Medication(s) Medication(s): Fentanyl, Lidocaine 1%, Nicardipine and Versed Summary of Findings Coronary angiography: 1. Left main coronary artery: The LMCA is large in caliber and short in length. No significant CAD. 2. Left anterior descending: The LAD is a large caliber vessel that wraps around the apex. Proximal and mid LAD stents noted. Proximal LAD stent with 30-40% in stent restenoses. Mid LAD stent 40% in stent restenoses. Just distal to the mid LAD stent there is a 95-99% stenosis, involving the origin of very small caliber D2 vessel. Distal LAD 30%. Apical LAD 70-80%. MAYKEL 3 flow. Large D1 without significant CAD. 3. Circumflex: The circumflex is large and dominant. Proximal circumflex 30%. Mid circumflex 50%. There is a medium caliber high OM1 without significant CAD. There is a small caliber OM2 without CAD. Proximal PL 130-40%. PL to and circumflex PDA without significant CAD. 4. Right coronary artery: The RCA is small and non dominant. Proximal RCA 20%. Mid RCA stent 10% in stent restenoses. Sedation start time: 1:33 p.m. Sedation end time: 2:02 p.m. Procedural notes: 1. Coronary angiography was performed via the right radial artery with 6 Sudanese JL 3.5 and JR4 diagnostic catheters. 2. Aortic valve was not crossed. Documented mild aortic stenosis as an outpatient on echocardiogram. Impression: 1. Severe CAD involving mid LAD and apical LAD. 2. Nonobstructive CAD involving LAD stents, circumflex, and RCA systems. Plan: 1. Dr. Haas of interventional Cardiology was asked to review the images and consider PCI of mid LAD. Hemodynamics Rest Ao:: 132/67 Final Ao: 147/77 LV: n/a Recommendations Recommendations: PCI without planned CABG Specimens Specimens: None Radiation Exposure (mGy) 1394 mGy. Fluoro time 9.2 min. Contrast (mls) 50 ml Procedural Complication(s) None Disposition Program Support Specialist Holding/Recovery (remains in cath laboratory technician for PCI) ACC Data: Program Support Specialist Cardiac Status Clinical evaluation leading to the procedure CAD Presenation: Stable angina Anginal Classification: CCS III Heart Failure: No Cardiogenic Shock within 24 Hours: No Cardiac Arrest within 24 Hours: No Imaging Studies Past 6 Months: Yes (echo) Stress Studies Past 6 Months: No Standard Exercise Test: No Stress Echocardiogram: No Stress Testing w/SPECT MPI: No Cardiac CTA: No Coronary Anatomy Dominant: Left Left Main (% Stenosis): Normal LAD (% Stenosis): Proximal (30-40% instent), Mid (40% instent followed by 95-99% distal to stent edge) and Distal (30%. Apical LAD 70-80%) D1 (% Stenosis): Normal Circumflex (% Stenosis): Proximal (30%) and Mid (50%) OM1 (% Stenosis): Normal OM2 (% Stenosis): Normal L PL1 (% Stenosis): Proximal (30-40%) L PL2 (% Stenosis): Normal L PDA (% Stenosis): Normal RCA (% Stenosis): Proximal (20%) and Mid (10% in-stent) Left Ventricular Angiography EF (%): n/a Diagnostic Physicians Name: Emiliano Cash MD Status: Elective Closure Device Percutaneous Entry Location: Radial Closure Device: Radial Band (after PCI) Recommendations: PCI without planned CABG
[2018-08-27] MEDS ORDERED: TICAGRELOR 90 MG TAB PO ONE (14:56)
--- NOTE | 2018-08-27 15:10 | Post Anesthesia Assessment ---
Date of Service August 27, 2018 Post Sedation Assessment Vital Signs Temp Pulse Resp BP Pulse Ox 08/27/18 10:38 36.6 C 61 18 171/80 H 97 Recovery Score Activity: Moves 4 extremities Respiration: Deep Breath/Cough Circulation: +/-20% PreAnes Value Consciousness: Fully Awake Oxygen Saturation: O2 needed for >90% Discharge Sedation Level of Care: Fast Track Phase II Post Sedation Plan On clinical assessment, the patient appears to have tolerated the sedation without complications. Patient is recovering as anticipated. Patient will continue to be monitored by nursing and may be discharged when sedation discharge criteria are met per below protocol. Upon Completions of procedure and additional 15 minutes continue every 5 minute vital signs and the P.A.R. score; then discharge to a Phase I or Fast Track to Phase II per the following guidelines: * Discharge Patient to appropriate Phase II area if PAR is 8 or greater or return to pre- procedure baseline. The post - procedure orders will be as directed. * If PAR score is less than 8 or not return to pre-procedure baseline then patient will follow Phase I monitoring till PAR is reached for Phase II. The Phase I may be done in procedure room or may call to secure a Phase I area. * If naloxone or flumazenil are used for reversal, hold in Phase I for continued monitoring from when last reversal dose was given for a minimum of 60 minutes or longer pending the nurse and/or physician discretion of patient condition before discharge to Phase II. Please call the Sedation Physician to re-evaluate and complete post-note for discharge to Phase II area. Do NOT discharge from procedure sedation or Phase 1 until post- sedation evaluation note is complete by procedure /sedation MD Sedation Discharge Instructions to be given to the patient at discharge to home.
[2018-08-27] MEDS ORDERED: ONDANSETRON INJ 2 MG/ML 2 ML VIAL IV PRN (15:18)
--- NOTE | 2018-08-27 15:18 | Cardiac Catheterization ---
Cardiac Cath Procedure Full Procedure Date August 27, 2018 Pre-Procedure Diagnosis Pre-Procedure Diagnosis: Angina and CAD AUC Score AUC Score: 7 Post-Procedure Diagnosis Post-Procedure Diagnosis: Severe CAD Procedure(s) Performed Procedure(s) Performed: Coronary Angiography Manager [place] Myke Haas MD Home Health Outreach Coordinator(s) [place]ros[place] Estimated Blood Loss Estimated Blood Loss: < 25 ml Medication(s) Medication(s): Fentanyl, Lidocaine 1%, Nicardipine and Versed Summary of Findings Indication: Accelerating angina Access: 6 Fr right radial artery Catheters: EBU 3.5 Findings: For full details of patient's coronary angiography please cath report dictated by Dr. Cash. Briefly, patient found to have severe stenosis involving the mid LAD just after previously placed stents. Decision to proceed with PCI. -- PCI -- Antithrombotic therapy: Heparin, ticagrelor Procedure: Left main cannulated with EBU 3.5 guide Enrollment Services Vice President 50 wire passed across lesion into distal vessel Mid LAD lesion predilated with 2.5 compliant balloon Dilated lesion stented with 2.5 x 15 mm [place] drug-eluting stent Stent post-dilated with 2.5 noncompliant balloon IC vasodilators administered for spasm Post procedure MAYKEL 3 flow, stent well expanded with minimal residual stenosis and no apparent cardiac complications. Arterial Closure: TR Summary: 1. Successful PCI of mid LAD with single drug-eluting stent (2.5 x 15 mm [place] overlapping with distal aspect of prior stents). Recommendations: To PCU for continued monitoring Loaded with ticagrelor 180 mg Continue dual-antiplatelet therapy for at least 6-month, consider extended DAPT with overlapping stents Continue statin, and ASCVD risk factor modification Consult cardiac Rehab Hemodynamics Rest Ao:: 132/67/91 Final Ao: 132/66/93 LV: -- Recommendations Recommendations: PCI without planned CABG Specimens Specimens: None Radiation Exposure (mGy) 3237 Contrast (mls) 130 Fluids (cc crystalloids) Fluids (cc crystalloids): 80 Drains Drains: none Anesthesia moderate Procedural Complication(s) None Disposition General Clerk Holding/Recovery (remains in senior laboratory technician for PCI) ACC Data: General Clerk Cardiac Status Clinical evaluation leading to the procedure CAD Presenation: Stable angina Anginal Classification: CCS III Heart Failure: No Cardiogenic Shock within 24 Hours: No Cardiac Arrest within 24 Hours: No Imaging Studies Past 6 Months: Yes Stress Studies Past 6 Months: No Diagnostic Physicians Name: Myke Haas MD Status: Elective Closure Device Percutaneous Entry Location: Radial Closure Device: Radial Band Recommendations: PCI without planned CABG PCI Indication: Angina despite med therapy and Stable Angina Lesion Segment Name: mid LAD Culprit Artery: Yes Stenosis Prior to Rx (%): 95 Chronic Total Occlusion: No IVUS: No FFR: No Pre-Procedure MAYKEL Flow: 3 Previously Treated Lesion: No Lesion Complexity: Non-High/Non-C Lesion Length (mm): 10 Thrombus Present: No Bifurcation Lesion: No Guidewire Across Lesion: Stenosis Post-Procedure (%): 0 Post-Procedure MAYKEL Flow: 3 Devices(s) Deployed: Yes Yes Intraprocedure Events Significant Disection: No Perforation: No
[2018-08-27] MEDS ORDERED: SODIUM CHLORIDE 0.9% 1000ML 1,000 ML IV SCH (15:30)
[2018-08-27] MEDS: ALBUTEROL HFA 8 GM INHALER INH SCH ×3 (16:59→23:25)
[2018-08-27] MEDS: GABAPENTIN 400 MG CAP PO SCH (20:19)
[2018-08-27] MEDS: TICAGRELOR 90 MG TAB PO SCH (23:21)
[2018-08-28] MEDS: ALBUTEROL HFA 8 GM INHALER INH SCH ×2 (03:04→07:57)
[2018-08-28 07:29] LABS: Basophils # (auto) 0.03 K/uL (0-0.2); Basophils % (auto) 0.6 %; Eosinophils # (auto) 0.17 K/uL (0-0.5); Eosinophils % (auto) 3.2 %; Hematocrit (blood only) 41.4 % (42-52); Hemoglobin 13.9 g/dL (14.0-18.0); Immature Granulocytes # (auto) 0.01 K/uL (0.00-0.02); Immature Granulocytes % (auto) 0.2 %; Lymphocytes # (auto) 0.94 K/uL (1.2-3.4); Lymphocytes % (auto) 17.6 %; Mean Corpuscular Hgb Conc 33.6 g/dL (32-36); Mean Corpuscular Volume 92.4 fL (80-100); Mean Platelet Volume 8.9 fL (7.4-10.4); Monocytes # (auto) 0.32 K/uL (0.11-0.59); Neutrophils # (auto) 3.86 K/uL (1.4-6.5); Neutrophils % (auto) 72.4 %; Platelet Count 274 K/uL (130-400); RDW Coefficient of Variation 13.4 % (11.5-14.5); RDW Standard Deviation 45.5 fL (36.4-46.3); Red Blood Count 4.48 M/uL (4.7-6.1); White Blood Count 5.33 K/uL (4.8-10.8)
[2018-08-28] MEDS: TICAGRELOR 90 MG TAB PO SCH (07:56)
[2018-08-28] MEDS: GABAPENTIN 400 MG CAP PO SCH (07:57)
[2018-08-28] MEDS ORDERED: CITALOPRAM 20 MG TAB PO SCH (09:00)
[2018-08-28] MEDS ORDERED: MAGNESIUM OXIDE 400 MG TAB PO SCH (09:00)
[2018-08-28] MEDS ORDERED: PANTOprazole 40 MG TAB PO SCH (09:00)
[2018-08-28] MEDS ORDERED: ISOSORBIDE MONO EXTENDED REL 30 MG TABCR PO SCH (09:00)
[2018-08-28] MEDS ORDERED: ASPIRIN 81 MG ECTAB PO SCH (09:00)
[2018-08-28] MEDS ORDERED: METOPROLOL SUCC 25MG EXT REL TAB PO SCH (09:00)
--- NOTE | 2018-08-28 13:10 | Discharge Summary ---
Date of Service August 28, 2018 Admission HPI Per Admitting Provider He presented to the cardiac catheterization lab for outpatient/elective cardiac catheterization. He had been noting exertional angina. He had responded to nitrate therapy in the form of isosorbide mononitrate 30 mg, but continued to have the symptoms, although improved. Coronary angiography demonstrated severe mid LAD stenosis. He underwent PCI with 2.5 x 15 mm [place] drug-eluting stent, post dilated with a 2.5 noncompliant balloon. The stent overlap the distal aspect of prior mid LAD stent. He tolerated the procedure well without known complication. He was then admitted under observation. Cardiac catheterization findings as noted below: Coronary angiography: 1. Left main coronary artery: The LMCA is large in caliber and short in length. No significant CAD. 2. Left anterior descending: The LAD is a large caliber vessel that wraps around the apex. Proximal and mid LAD stents noted. Proximal LAD stent with 30-40% in stent restenoses. Mid LAD stent 40% in stent restenoses. Just distal to the mid LAD stent there is a 95-99% stenosis, involving the origin of very small caliber D2 vessel. Distal LAD 30%. Apical LAD 70-80%. MAYKEL 3 flow. Large D1 without significant CAD. 3. Circumflex: The circumflex is large and dominant. Proximal circumflex 30%. Mid circumflex 50%. There is a medium caliber high OM1 without significant CAD. There is a small caliber OM2 without CAD. Proximal PL 130-40%. PL to and circumflex PDA without significant CAD. 4. Right coronary artery: The RCA is small and non dominant. Proximal RCA 20%. Mid RCA stent 10% in stent restenoses. Admission Exam (Per Admitting) Constitutional Discharge exam: Gen.: No acute distress. Alert and oriented. HEENT: Anicteric sclera. Neck: No JVD. Cardiac: Regular. Normal S1-S2. 2/6 early peaking systolic ejection murmur. No rubs, or gallops. Pulmonary: Clear to auscultation bilaterally without wheezes, rales, or rhonchi. Abdomen: Soft, nontender, nondistended, with normoactive bowel sounds. No bruits noted. Extremities: No edema or cyanosis. Right radial cath site is clean, dry, and intact without erythema or discharge. Psychiatric: Affect appears appropriate. He has ambulated in his room on the day of discharge without exertional symptoms. He denies chest pain, shortness of breath, syncope, near-syncope, palpitations, or edema. He denies bleeding. Specialty Data Cardiology Telemetry personally reviewed: Sinus rhythm. Possible [place] 1 overnight. No significant pauses. Discharge Data Procedures Performed Operation Date: 08/27/18 10:30 Actual Procedures p Cath, Coronaries ONLY (no LV) - Emiliano Cash MD s Cineradiography w/Routine Exam - Emiliano Cash MD s Drug Eluding Stent, SVG/VIKASH, A - Valdemar Haas MD Hospital Course (1) CAD (coronary artery disease), [place] coronary artery: He underwent mid LAD PCI. No further angina. It was recommended that he ambulate in the hallway prior to discharge to monitor for symptoms. Continue aspirin 81 mg daily indefinitely. He is allergic to Plavix. Brilinta was initiated. Continue Brilinta for at least 6 months, but preferably for 1 year or more. He is allergic to statin therapy. 911 for angina that does not resolve within 5 minutes of nitroglycerin. Can continue nitrate therapy for now. (2) Exertional angina: No further symptoms. Continue management as above. (3) Bradycardia: While in the freezer laboratory technician holding area before his procedure, he was noted to be bradycardic with heart rates in the 40s at times. He also reported at that time that he had a recent syncopal episode. For this reason, metoprolol succinate 12.5 mg daily was discontinued. Outpatient event monitor ordered. Heart rate improved off of beta-ghada during hospitalization. (4) Syncope: Event monitor as above. Beta-ghada discontinued. Although he was hypertensive throughout much of the day yesterday, his blood pressure has since improved and given history of orthostatic symptoms in the past and recent syncope of unexplained origin, his antihypertensive regimen was not been adjusted. (5) S/P coronary artery stent placement: Anti-platelet therapy as outlined above. Disposition: Follow-up in the office in 1-2 weeks.
== END 2018-08-28 10:00 | disposition home or self-care (01) ==
LOC: 2S 09:20 → CC 09:20
PROC: CLB.CCO (2018-08-27 10:30)

== ENCOUNTER 2019-07-13 07:34 | Inpatient (IN) ==
--- NOTE | 2019-07-06 13:34 | PAT Medication Instructions ---
Medication Instructions Date of Service July 06, 2019 Home Medications Medication Instructions Recorded blood sugar diagnostic #100 ea 02/08/19 gabapentin 400 mg capsule 400 mg PO TID #270 cap 02/08/19 lancets 33 gauge #100 ea 02/08/19 albuterol sulfate 90 mcg/actuation 2 puffs INHALATION Q4H PRN #18 gm 03/23/19 aerosol inhaler isosorbide mononitrate 60 mg 90 mg PO QAM #45 tab 06/23/19 tablet,extended release 24 hr gabapentin 400 mg capsule 400 mg PO TID albuterol sulfate 90 mcg/actuation aerosol inhaler 2 puffs INHALATION Q4H PRN isosorbide mononitrate 60 mg tablet,extended release 24 hr 90 mg PO QAM Stiolto Respimat 2 puff INHALATION QPM aspirin [Aspirin Low Dose] 81 mg PO QAM citalopram 20 mg PO QAM glimepiride 1 mg PO BIDM magnesium oxide 400 mg PO QAM omeprazole 40 mg PO QAM ASK your surgeon for instructions aspirin [Aspirin Low Dose] 81 mg PO QAM DO NOT take the morning of surgery glimepiride 1 mg PO BIDM magnesium oxide 400 mg PO QAM Take morning of surgery With a small sip of water, OTHERWISE NOTHING TO EAT OR DRINK AFTER MIDNIGHT: gabapentin 400 mg capsule 400 mg PO TID albuterol sulfate 90 mcg/actuation aerosol inhaler 2 puffs INHALATION Q4H PRN (if needed) isosorbide mononitrate 60 mg tablet,extended release 24 hr 90 mg PO QAM citalopram 20 mg PO QAM omeprazole 40 mg PO QAM Take evening before surgery gabapentin 400 mg capsule 400 mg PO TID albuterol sulfate 90 mcg/actuation aerosol inhaler 2 puffs INHALATION Q4H PRN (if needed) Stiolto Respimat 2 puff INHALATION QPM glimepiride 1 mg PO BIDM Other Notes If you have any questions please call us at [phone] or [phone] or [phone] or [phone]
--- NOTE | 2019-07-07 09:06 | Anesthesiology Consultation ---
Date of Service July 07, 2019 Assessment & Plan (1) Encounter for pre-operative examination: Chart Review Chart Review: Acceptable Risk for Surgery and Patient seen in Pre Admission Testing Teaching & Discussion Instructed NPO after midnight before surgery, except medications with 15 cc of water. Medication instructions provided according to the PAT guidelines. History Surgery Operation Date: 07/13/19 09:50 Proposed Procedures p Right Carotid Endarterectomy - Roberto Carlos Felipe MD Height/Weight Height: 5 ft 10 in Weight: 106.1 kg Allergies Allergy/AdvReac Type Severity Reaction Status Date / Time clopidogrel Allergy Intermediate rash Verified 07/01/19 11:34 atorvastatin AdvReac Intermediate elevated Verified 07/01/19 11:34 liver enzymes Medications Home Medications Medication Instructions Recorded Confirmed Last Taken blood sugar diagnostic #100 ea 02/08/19 07/01/19 Unknown gabapentin 400 mg capsule 400 mg PO TID #270 cap 02/08/19 07/01/19 Unknown lancets 33 gauge #100 ea 02/08/19 07/01/19 Unknown albuterol sulfate 90 mcg/actuation 2 puffs INHALATION Q4H PRN #18 gm 03/23/19 07/01/19 Unknown aerosol inhaler isosorbide mononitrate 60 mg 90 mg PO QAM #45 tab 06/23/19 07/01/19 Unknown tablet,extended release 24 hr Stiolto Respimat 2 puff INHALATION QPM 07/01/19 07/01/19 Unknown aspirin [Aspirin Low Dose] 81 mg PO QAM 07/01/19 07/01/19 Unknown citalopram 20 mg PO QAM 07/01/19 07/01/19 Unknown glimepiride 1 mg PO BIDM 07/01/19 07/01/19 Unknown magnesium oxide 400 mg PO QAM 07/01/19 07/01/19 Unknown omeprazole 40 mg PO QAM 07/01/19 07/01/19 Unknown Past Medical History Medical History (Updated 07/07/19 @ 09:28 by Fred Gunn) Anxiety Aortic stenosis (Acute) Barretts esophagus (Acute) CAD (coronary artery disease), [place] coronary artery s/p stent x 2 in , single stent 2017. Most recent cath 2019 showed patent stents and moderate non-obstructive CAD in non-stented vessels. Carotid stenosis (Acute) COPD, mild (Acute) Depression Diabetes mellitus, type 2 A1C 7.9% 05/2019. Dyspnea on exertion GERD (gastroesophageal reflux disease) (Acute) Hx of tongue cancer had chemo and radiation - 7 yr ago - [facility] Transient ischemic attack (TIA) 6-8 mo ago - presented with ataxia/balance issues. Brain MRI showed no acute or subacute infarct. Exercise / Class Metabolic Activity II 4-5 Yardwork/Stairs/Walk up hill (Remains active doing yardwork, does 1 FOS once daily, +SOB, no chest pain.) Past Family History Family History Sister Diabetes Brother Diabetes Heart disease Lung disease Past Surgical History Surgical History History of cardiac cath 1979"s - stent x2; 2017 - x1 stent; 2019 - no stents -all caths [facility] per pt History of hernia repair History of lumbar laminectomy History of PTCA Hx of colonoscopy Past Anesthesia History No Hx of Anesthesia Complications and No Family Hx of Anesthesia Complications History of PONV No Hx of PONV and No Hx of Motion Sickness Social History Smoking Status: Never smoker Do You Dip or Chew Tobacco: No Hx Alcohol Use: Yes Alcohol type: beer alcohol intake frequency: a few times a week Hx Substance Use: No substance use type: does not use Review of Systems Pt denies any recent chest pain, shortness of breath, palpitations, cough, fever or URI. Physical Exam Vital Signs BP: 170/90 NIBP (rpt manual 138/80) P: 54bpm SPO2: 94% RA T: 98.3 F R: 16 ENMT Mouth: no dental restorations, no chipped teeth and no loose teeth Thyromental Distance: < 3.5 Finger Breadths (3.5) Mallampati Class: I Neck + short neck, + limited neck extension (mildly) and + facial hair (very short goatee, pt states usually shaved) Respiratory normal respiratory effort Auscultation: lungs clear to auscultation bilaterally and + diminished lung sounds (B/L apices) Cardiovascular Rate/Rhythm: regular rate and regular rhythm Heart Sounds: + murmur (I/ systolic) Vessels: no carotid bruit Testing Laboratory Results 07/07/19 09:17 07/07/19 09:17 PT 10.0 Seconds (9.0-12.0) 07/07/19 09:17 INR 1.0 (0.9-1.1) 07/07/19 09:17 APTT 24.2 Seconds (21.0-31.0) 07/07/19 09:17 Blood Type O Positive 07/07/19 09:17 Antibody Screen NEGATIVE 07/07/19 09:17 Electrocardiogram Date: 02/24/19 Sinus rhythm at 75 bpm with first-degree AV block. Indeterminate axis. Right bundle branch block. Left anterior fascicular block. Chest X-Ray Date: 03/24/19 Findings: + NAD Moderate cardiomegaly. Echocardiogram Date: 08/18/18 EF: 55-60% Normal LV size and systolic function. No regional wall motion abnormalities. Mild concentric LVH. Mild valvular aortic stenosis, mean pressure gradient 11 mmHg.. Normal estimated RVSP at 23 mmHg, MARIA [place] 1.7 cm. Technically difficult study, enhanced with IV Definity. Cardiac Catheterization Date: 02/18/19 Summary: 1. Patent LAD, proximal to mid RCA stents 2. Severe small vessel disease 80% apical LAD 80% ostial small OM 2 3. Moderate nonobstructive multivessel disease 40% mid, 60% earlylate LAD 60% latemid RCA 4. Normal intracardiac filling pressure. Normal LV function. 5. No significant aortic valve gradient. Recommendations: No high risk lesions at this time. Currently only on single antianginal and recommend maximizing antianginal therapy. If refractory symptoms in the future could consider additional FFR assessment, intervention to mid LAD, RCA. Continue DAPT with aspirin, ticagrelor Pulmonary Function Test Date: 04/05/19 Findings: + FEV1 pre (2.36/96%), + FEV1 post (2.55) and + DLCO Normal PFT. No significant postbronchodilator response. Other Testing Carotid Doppler 04/05/2019 Greater than 70% stenosis in the right internal carotid artery and 50 to 69% stenosis in the left internal carotid artery. Greater than 50% stenosis in the right and left ECAs. Antegrade waveforms in the right and left vertebral arteries. Compared with prior study on 09/01/2014: Right ICA and left ICA disease has progressed.
[2019-07-07 10:13] LABS: Basophils # (auto) 0.03 K/uL (0-0.2); Basophils % (auto) 0.6 %; Eosinophils # (auto) 0.17 K/uL (0-0.5); Eosinophils % (auto) 3.4 %; Hemoglobin 13.8 g/dL (14.0-18.0); Immature Granulocytes # (auto) 0.01 K/uL (0.00-0.02); Immature Granulocytes % (auto) 0.2 %; Lymphocytes # (auto) 1.03 K/uL (1.2-3.4); Lymphocytes % (auto) 20.7 %; Mean Corpuscular Hemoglobin 31.2 pg (25-34); Mean Corpuscular Hgb Conc 33.7 g/dL (32-36); Mean Corpuscular Volume 92.8 fL (80-100); Mean Platelet Volume 9.3 fL (7.4-10.4); Monocytes # (auto) 0.39 K/uL (0.11-0.59); Monocytes % (auto) 7.8 %; Neutrophils # (auto) 3.34 K/uL (1.4-6.5); Neutrophils % (auto) 67.3 %; Platelet Count 276 K/uL (130-400); RDW Coefficient of Variation 13.3 % (11.5-14.5); RDW Standard Deviation 44.9 fL (36.4-46.3); Red Blood Count 4.42 M/uL (4.7-6.1); White Blood Count 4.97 K/uL (4.8-10.8)
[2019-07-07 10:18] LABS: BUN Creatinine Ratio 17.7 (10-20); Calcium 9.6 mg/dl (8.5-10.1); Creatinine Clr Calc Pharmacy 83.3 ml/min; Est GFR (African American) 93.3; Est GFR (Non-African American) 80.5; Potassium 4.7 mmol/L (3.5-5.1)
[2019-07-07 10:26] LABS: Partial Thromboplastin Ratio 0.9; Partial Thromboplastin Time 24.2 Seconds (21.0-31.0)
--- NOTE | 2019-07-13 06:31 | History & Physical Report ---
Date of Service July 13, 2019 Assessment & Plan (1) Stenosis of right carotid artery: Patient admitted for a right carotid endarterectomy. I have discussed the risks options and benefits of the procedure with the patient. The patient understands the risks options and benefits and agrees to the procedure. History of Present Illness Chief Complaint: Bilateral carotid artery stenosis Primary Care Provider: Matt Mckeon MD I the pleasure of seeing Peter for evaluation of his carotid disease. As you know he is a 74-year-old gentleman who was found to have a severe stenosis right internal carotid artery on ultrasound. This was confirmed by CTA. He denies any focal findings of weakness, paralysis, facial droop, speech difficulties, or transient blindness. He also has a history of neck radiation secondary to a nodule of the back of his tongue approximately 8 years ago. He also denies any symptoms of claudication. Allergies Allergy/AdvReac Type Severity Reaction Status Date / Time clopidogrel Allergy Intermediate rash Verified 07/01/19 11:34 atorvastatin AdvReac Intermediate elevated Verified 07/01/19 11:34 liver enzymes Home Medications Home Medications Medication Instructions Recorded Confirmed Type blood sugar diagnostic #100 ea 02/08/19 07/01/19 Rx gabapentin 400 mg capsule 400 mg PO TID #270 cap 02/08/19 07/01/19 Rx lancets 33 gauge #100 ea 02/08/19 07/01/19 Rx albuterol sulfate 90 mcg/actuation 2 puffs INHALATION Q4H PRN #18 gm 03/23/19 07/01/19 Rx aerosol inhaler isosorbide mononitrate 60 mg 90 mg PO QAM #45 tab 06/23/19 07/01/19 Rx tablet,extended release 24 hr Stiolto Respimat 2 puff INHALATION QPM 07/01/19 07/01/19 History aspirin [Aspirin Low Dose] 81 mg PO QAM 07/01/19 07/01/19 History citalopram 20 mg PO QAM 07/01/19 07/01/19 History glimepiride 1 mg PO BIDM 07/01/19 07/01/19 History magnesium oxide 400 mg PO QAM 07/01/19 07/01/19 History omeprazole 40 mg PO QAM 07/01/19 07/01/19 History Past Med/Surg History Medical History Anxiety Aortic stenosis (Acute) Barretts esophagus (Acute) CAD (coronary artery disease), [place] coronary artery s/p stent x 2 in 1980s, single stent 2018. Most recent cath 2019 showed patent stents and moderate non-obstructive CAD in non-stented vessels. Carotid stenosis (Acute) COPD, mild (Acute) Depression Diabetes mellitus, type 2 A1C 7.9% 05/2019. Dyspnea on exertion GERD (gastroesophageal reflux disease) (Acute) Hx of tongue cancer had chemo and radiation - [address] [facility] Transient ischemic attack (TIA) 6-8 mo ago - presented with ataxia/balance issues. Brain MRI showed no acute or subacute infarct. Surgical History History of cardiac cath 1979"s - stent x2; 2017 - x1 stent; 2019 - no stents -all caths [facility] per pt History of hernia repair History of lumbar laminectomy History of PTCA Hx of colonoscopy Family History Sister Diabetes Brother Diabetes Heart disease Lung disease Social History Preferred Language: Divehi Communication Ability: Effective Still Runner Required: No Beliefs That Will Affect Care: None Current Living Situation: Spouse Feels Safe at Home: Yes Safety Concerns: Feels Safe At This Time Smoking Status: Never smoker Do You Dip or Chew Tobacco: No ; Second Hand Ex posure: No ; Hx Alcohol Use: Yes Alcohol type: beer Hx Substance Use: No Review of Systems All systems reviewed & are unremarkable except as noted in HPI & below positive findings were occasional blackout spells shortness of breath and urinary incontinence Physical Exam Physical Exam: On exam patient is awake and alert and oriented x3. He is in no apparent distress. His blood pressure is 138/68 on the right 130/68 on the left. His neck is supple. I cannot appreciate carotid bruits. Lungs are clear to auscultation. Heart had a regular rate and rhythm. There is a 2/6 ejection murmur heard sternal border. Abdominal exam is benign. I cannot appreciate dilatation of the aorta. His radial carotids and superficial temporal artery pulses are +2 bilaterally. His femorals are +2 bilaterally. His pedal pulses are also +2 bilaterally. Neurologic exam is grossly intact to motor and sensory function.
--- NOTE | 2019-07-13 07:18 | History & Physical Bridge Note ---
Date of Service July 13, 2019 History & Physical Bridge Note Patient admitted now for transposition of her left arm basilic vein fistula. I have discussed the risks options and benefits of the procedure with the patient. The patient understands the risks options and benefits and agrees to the procedure. I have examined the patient, reviewed the History & Physical and in the interval since the performance of the History & Physical I have noted the following changes of clinical significance: no changes noted
[~2019-07-13 07:34] MED LIST changes: -ASPCH81X PO; -BROM0.0911 OPR; +CEFAZOLIN 1000MG 1,000 MG/7.5 ML SYR IV SCH; +CEFAZOLIN 2,000 MG/15 ML SYR IV SCH; +CEFAZOLIN 250 MG/ML 1 GM VIAL ONE; -CHOL4POW11 PO; -CLX20 PO; -GABA600T PO; +GELATIN SPONGE SZ 100 ONE; -GLC/500 PO; +HEPARIN (PORCINE) 1000 UNIT/ML 10 ML (CATH LAB USE ONLY) ONE; +LIDOCAINE HCL 1% 20 ML VIAL ONE; +LR 15ML/HR IV SCH; -MAGN400T6 PO; -NTRGSL/4 UT; -PRED1SUS OPR; +THROMBIN FOR SOLN 20000 UNIT KIT ONE
[2019-07-13] MEDS ORDERED: fentaNYL citrate 100 MCG/2 ML VIAL IV PRN (09:45)
[2019-07-13] MEDS ORDERED: HYDROmorphone INJ 2 MG/ML SYR/VIAL IV PRN (09:45)
[2019-07-13] MEDS ORDERED: ATROPINE SULFATE 0.1 MG/ML 10ML SYR IV PRN (09:45)
[2019-07-13] MEDS ORDERED: ONDANSETRON INJ 2 MG/ML 2 ML VIAL IV PRN (09:45)
[2019-07-13] MEDS ORDERED: ePHEDrine sulfate 50 MG/ML AMP IV PRN (09:45)
[2019-07-13] MEDS ORDERED: MIDAZOLAM HCL 1 MG/ML 2ML VIAL ONE ×2 (10:18→11:03)
[2019-07-13] MEDS ORDERED: LARYING-O-JET KIT (LTA) ONE (10:35)
[2019-07-13] MEDS ORDERED: PROPOFOL IV EMULSION 10 MG/ML 20 ML VIAL IV ONE (11:03)
[2019-07-13] MEDS ORDERED: GLYCOPYRROLATE 0.2 MG/ML VIAL ONE (11:03)
[2019-07-13] MEDS ORDERED: ONDANSETRON INJ 2 MG/ML 2 ML VIAL ONE (11:03)
[2019-07-13] MEDS ORDERED: LIDOCAINE HCL 2% 2 ML VIAL/AMP(20MG/ML) INFIL ONE (11:03)
[2019-07-13] MEDS ORDERED: NEOSTIGMINE METHYLSULFATE 5 MG/5 ML SYR ONE (11:03)
[2019-07-13] MEDS ORDERED: DEXAMETHASONE SOD INJ 4 MG/ML VIAL ONE (11:03)
[2019-07-13] MEDS ORDERED: fentaNYL citrate 100 MCG/2 ML VIAL ONE ×2 (11:04→13:13)
--- NOTE | 2019-07-13 11:06 | History & Physical Bridge Note ---
Date of Service July 13, 2019 History & Physical Bridge Note I have examined the patient, reviewed the History & Physical and in the interval since the performance of the History & Physical I have noted the following changes of clinical significance: no changes noted
[2019-07-13] MEDS ORDERED: BUPIVACAINE/EPINEPHRINE 0.5% MPF 1:200,000 10 ML VIAL ONE (11:40)
[2019-07-13] MEDS ORDERED: ROCURONIUM BROMID 50MG/5ML SYR ONE (11:52)
[2019-07-13] MEDS ORDERED: ePHEDrine sulfate 50 MG/ML SYR ONE (11:57)
[2019-07-13] MEDS ORDERED: HEPARIN SOD (PORCINE) 1000 UNIT/ML 10 ML VIAL ONE (11:57)
[2019-07-13] MEDS ORDERED: NITROGLYCERIN/D5W 100 MCG/ML BTL ONE (12:57)
--- NOTE | 2019-07-13 13:48 | Post Operative Brief Note ---
Immediate Post Op Note v1 Date of Surgery July 13, 2019 Pre & Post Diagnosis Operation Date: 07/13/19 09:50 Pre-Op Diagnosis: Right Internal Carotid Artery Stenosis Post-Op Diagnosis: Right Internal Carotid Artery Stenosis I identified the patient and participated in the time-out.: Yes Procedure Operation Date: 07/13/19 09:50 Actual Procedures p Right Carotid Endarterectomy with bovine patch graft (Right) - Roberto Carlos Felipe MD Surgeon Roberto Carlos Felipe MD Junior Sales Representative MD Lori LJoelMinarchick,PAC Estimated Blood Loss 80 Findings Consistent with Post-Op Diagnosis Anesthesia Type General Complications none Disposition Accompanied Patient To Recovery: No Disposition: Recovery Room
[2019-07-13] MEDS ORDERED: HydrALAZINE HCL 20 MG/ML VIAL ONE (13:52)
--- NOTE | 2019-07-13 14:22 | Operative Report ---
Post Operative Report Pre & Post Diagnosis Operation Date: 07/13/19 09:50 Pre-Op Diagnosis: Right Internal Carotid Artery Stenosis Post-Op Diagnosis: Right Internal Carotid Artery Stenosis I identified the patient and participated in the time-out.: Yes Procedure Operation Date: 07/13/19 09:50 Actual Procedures p Right Carotid Endarterectomy with bovine patch graft (Right) - Roberto Carlos Felipe MD Surgeon Dr. Felipe Band Splicer MD Lori LJoelMinarchkennedi,PAC Estimated Blood Loss 80 Findings Consistent with Post-Op Diagnosis Specimens R carotid plaque Anesthesia Type General Complications none Disposition Accompanied Patient To Recovery: No Disposition: Recovery Room Description of Procedure The patient was taken to the operating room and placed in supine position. After general anesthesia was accomplished the right-side of the neck was prepped and draped in a sterile manner. A longitudinal neck incision was then made coursing along the medial border of the sternocleidomastoid muscle. The incisio n was taken down through the platysmal layer. The external jugular vein was identified, ligated, and divided. The internal jugular vein was then identified. The common carotid artery was then seen, matted to the posterior aspect of the vein, likely secondary to previous radiation. The common carotid was dissected free down to the omohyoid muscle. The dissection was carried upward until the external carotid artery and superior thyroid artery was seen. The superior thyroid artery was slung with a rubber vessel loop. The external carotid was slung with a red rubber vessel loop. Next the dissection was carried up along the internal carotid artery. This was carried upward to beyond the area of narrowing. The hypoglossal nerve was seen, mobilized by dividing accompanying artery and vein, and preserved. The patient was heparinized. After adequate heparinization was accomplished, the internal, external, and common carotid arteries were clamped. A longitudinal arteriotomy was started on the common carotid artery and extended upward along the internal carotid artery to a point beyond the area of narrowing. There was calcified plaque of the internal and external carotid artery origin causing approximately 85-90% narrowing. A Doppler shunt was then placed in the internal, followed by the common carotid artery and held in place with Terry clamps. There was good back bleeding seen from the internal carotid artery. The endarterectomy was then started in the appropriate plane on the common carotid artery. This was carried upward and the external carotid was everted and endarterectomized. The endarterectomy was then carried up along the internal carotid artery till a nice feathering breakoff point was accomplished beyond the end of the plaque. The medial internal carotid artery had a 5mm rend that was repaired with interrupted 7-0 prolene sutures. The endarterectomy was then carried down further on the common carotid artery. At end of the arteriotomy, the plaque was then transected. Under loop magnification, all loose debris and flaps were removed. There is no distal flap seen at the end of the endarterectomy site. The arteriotomy then closed using a bovine pericardiall patch and a running 6-0 prolene suture. This was done in the usual vascular fashion. Prior to completing the closure, the doppler shunt was removed and the internal and common carotid arteries were reclamped. Backbleeding and forward bleeding was allowed to occur. The flow surface was irrigated with heparinized saline. The final few sutures were then placed and securely tied. Clamps were then removed off the external and common carotid arteries. The clamp was then removed the internal carotid artery. Good distal flow was seen. Adequate hemostasis was seen of the patch. The wound was inspected and adequate hemostasis was obtained. The wound was irrigated with antibiotic solution. It was then closed with a running 3-0 Vicryl suture for the platysmal layer and a 4-0 subcuticular Vicryl suture for the skin edges. Dermabond was used for dressing. The patient left the operating room in satisfactory condition and tolerated the procedure well. Patricia Rice Pac assisted due to lack of resident availability and was necessary for prepping, draping, retraction, wound closure defects, subQ and skin closure and was necessary for the case. I attest to the content of the Intraoperative Record and any orders documented therein. Any exceptions are noted below.
--- NOTE | 2019-07-13 14:35 | Anesthesiology Progress Note ---
Date of Service July 13, 2019 Anesthesia Post Procedure Vital Signs Vital Signs: Temp Pulse Resp BP BP Pulse Ox 07/13/19 14:17 35.8 C L 75 16 132/71 99 07/13/19 08:34 36.7 C 58 L 20 144/76 H 168/101 H 97 Transfer of Care Handoff Completed per policy Notes Mental Status: alert / awake / arousable and participated in evaluation Patient Amnestic to Procedure: Yes Nausea / Vomiting: adequately controlled Pain: adequately controlled Airway Patency, RR, SpO2: stable & adequate BP & HR: stable & adequate Hydration State: stable & adequate Anesthetic Complications: no major complications apparent and Pt Satisfied with anesthetic care
[2019-07-13] MEDS ORDERED: ALBUTEROL HFA INHALER 8.5 GM INH PRN (15:24)
[2019-07-13] MEDS ORDERED: MoRPHine SULFATE 4 MG/ML 1 ML CARP\\VIAL IV PRN (15:24)
[2019-07-13] MEDS ORDERED: D5W AND 1/2NSS 1,000 ML IV SCH (15:24)
--- NOTE | 2019-07-13 15:29 | Critical Care Consultation ---
Date of Consultation July 13, 2019 Assessment & Plan (1) Stenosis of right carotid artery: Impression: 74-year-old male status post right carotid endarterectomy for asymptomatic carotid stenosis. He has multiple medical problems underlying including diabetes, coronary artery disease, peripheral neuropathy Recommendations: 1. Post carotid endarterectomy: Management per vascular surgery. Continue blood pressure control. 2. Coronary artery disease: Continue aspirin as well as nitrates. Had extensive evaluation with prior to surgery. No evidence of ischemia. 3. Diabetes: Continue glimepiride as soon as the patient is taking orals. 4. Dyspnea on exertion: Would continue to follow clinically at this point time. 5. Patient is on several inhalers however he had PFTs performed which were essentially normal. This would argue against significant COPD. We will continue to observe in ICU. Ultimate disposition per vascular surgery. (2) Diabetes mellitus with peripheral circulatory disorder: History of Present Illness Attending Physician: Roberto Carlos Felipe MD History of Present Illness . He was taken to the OR todayAsked by Dr. Felipe to evaluate this patient postoperatively status post carotid endarterectomy. History is obtained from review the electronic medical record and discussion with the patient. The patient is a 74-year-old male with a history of coronary disease, hypertension, and diabetes who was found to have a severe stenosis of the right internal carotid artery which was asymptomatic. Does have a remote history of neck radiation due to a nodule on his tongue years ago. He was seen and evaluated in the vascular surgery clinic and felt to be an appropriate candidate for carotid endarterectomy. He was taken to the OR today for right internal carotid artery endarterectomy with bovine patch graft. He is brought to the ICU for observation. He is hemodynamically stable. He has an arterial line in pl hemant. He is awake alert and conversant. He is having no neurological symptoms and no problems swallowing or phonating. Allergies Allergy/AdvReac Type Severity Reaction Status Date / Time clopidogrel Allergy Intermediate rash Verified 07/13/19 08:07 atorvastatin AdvReac Intermediate elevated Verified 07/13/19 08:07 liver enzymes Home Medications Home Medications Medication Instructions Recorded Confirmed Type blood sugar diagnostic #100 ea 02/08/19 07/01/19 Rx gabapentin 400 mg capsule 400 mg PO TID #270 cap 02/08/19 07/13/19 Rx lancets 33 gauge #100 ea 02/08/19 07/01/19 Rx albuterol sulfate 90 mcg/actuation 2 puffs INHALATION Q4H PRN #18 gm 03/23/19 07/13/19 Rx aerosol inhaler isosorbide mononitrate 60 mg 90 mg PO QAM #45 tab 06/23/19 07/13/19 Rx tablet,extended release 24 hr Stiolto Respimat 2 puff INHALATION QPM 07/01/19 07/13/19 History aspirin [Aspirin Low Dose] 81 mg PO QAM 07/01/19 07/13/19 History citalopram 20 mg PO QAM 07/01/19 07/13/19 History glimepiride 1 mg PO BIDM 07/01/19 07/13/19 History magnesium oxide 400 mg PO QAM 07/01/19 07/13/19 History omeprazole 40 mg PO QAM 07/01/19 07/13/19 History Patient History Medical History Anxiety Aortic stenosis (Acute) Barretts esophagus (Acute) CAD (coronary artery disease), [place] coronary artery s/p stent x 2 in 1980s, single stent 2017. Most recent cath 2019 showed patent stents and moderate non-obstructive CAD in non-stented vessels. Carotid stenosis (Acute) COPD, mild (Acute) Depression Diabetes mellitus, type 2 A1C 7.9% 05/2019. Dyspnea on exertion GERD (gastroesophageal reflux disease) (Acute) Hx of tongue cancer had chemo and radiation - 7 yr ago - [facility] Transient ischemic attack (TIA) 6-8 mo ago - presented with ataxia/balance issues. Brain MRI showed no acute or subacute infarct. Surgical History History of cardiac cath 1979"s - stent x2; 2018 - x1 stent; 2019 - no stents -all caths [facility] per pt History of hernia repair History of lumbar laminectomy History of PTCA Hx of colonoscopy Family History Sister Diabetes Brother Diabetes Heart disease Lung disease Social History Preferred Language: Guinean Communication Ability: Effective Assistant Director Of Residence Life Required: No Beliefs That Will Affect Care: None Current Living Situation: Spouse Feels Safe at Home: Yes Safety Concerns: Feels Safe At This Time Smoking Status: Never smoker Do You Dip or Chew Tobacco: No ; Second Hand Exposure: No ; Hx Alcohol Use: Yes Alcohol type: beer Hx Substance Use: No Review of Systems Review of Systems: See admission H&P. No changes Physical Exam Constitutional: WD/WN, vitals as above Neck: trachea midline, no thyromegaly Respiratory: normal respiratory effort, lungs clear to auscultation Cardiovascular: RRR, no murmur, no edema Gastrointestinal (Abdomen): normal bowel sounds, soft, nontender, no hepatosplenomegaly Musculoskeletal: Extremities: extremities normal to inspection Skin: no rashes, warm and dry Neurologic: Nonfocal exam Lymphatic: no cervical lymphadenopathy Results & Data ([facility]) Vital Signs (Past 12 Hours) Vital Signs Temp Pulse Resp BP BP Pulse Ox 07/13/19 15:08 36.0 C L 69 22 132/70 99 07/13/19 14:55 36.0 C L 71 16 124/73 94 07/13/19 14:45 71 16 118/65 94 07/13/19 14:35 71 16 125/69 99 07/13/19 14:25 71 16 122/64 97 07/13/19 14:17 35.8 C L 75 16 122/64 99 07/13/19 08:34 36.7 C 58 L 20 144/76 H 168/101 H 97 Laboratory Results 07/07/19 09:17 07/07/19 09:17 Diagnostic Findings Chest x-ray from 03/24/2019 was reviewed. Lung volumes are slightly low. No significant cardiomegaly. No focal airspace opacity or increased interstitial markings. Coding Level of Care Code 72797 Inpt Consult Level 3 Diagnoses Stenosis of right carotid artery I65.21 Diabetes mellitus with peripheral circulatory disorder E11.51 Time Spent (min) 40
[2019-07-13] MEDS ORDERED: ICU MODERATE HYPERGLYCEMIA PROTOCOL PRN (15:30)
[2019-07-13] MEDS: SODIUM CHLORIDE 0.45 % 1,000 ML IV SCH (15:40)
[2019-07-13] MEDS ORDERED: MoRPHine SULFATE 2 MG/ML CARP IV PRN (15:47)
[2019-07-13] MEDS: GABAPENTIN 400 MG CAP PO SCH ×2 (16:01→20:55)
[2019-07-13] MEDS: OXYCODONE/ACETAMINOPHEN 5mg/325mg TAB PO PRN ×2 (17:20→23:55)
[2019-07-13] MEDS: GLIMEPIRIDE 2 MG TAB PO SCH (17:21)
[2019-07-13] MEDS: UMECLIDINIUM/VILANTEROL 62.5/25MCG 7 PUFFS/INHALER INH SCH (20:55)
[2019-07-13] MEDS: CEFAZOLIN 2000MG 2,000 MG/15 ML SYR IV SCH (22:18)
[2019-07-14] MEDS: SODIUM CHLORIDE 0.45 % 1,000 ML IV SCH ×2 (03:57→16:32)
[2019-07-14 05:15] LABS: Basophils # (auto) 0.02 K/uL (0-0.2); Basophils % (auto) 0.2 %; Eosinophils # (auto) 0.02 K/uL (0-0.5); Eosinophils % (auto) 0.2 %; Hematocrit (blood only) 37.8 % (42-52); Hemoglobin 12.7 g/dL (14.0-18.0); Immature Granulocytes # (auto) 0.02 K/uL (0.00-0.02); Immature Granulocytes % (auto) 0.2 %; Lymphocytes # (auto) 0.66 K/uL (1.2-3.4); Lymphocytes % (auto) 6.3 %; Mean Corpuscular Hemoglobin 31.2 pg (25-34); Mean Corpuscular Hgb Conc 33.6 g/dL (32-36); Mean Corpuscular Volume 92.9 fL (80-100); Mean Platelet Volume 8.8 fL (7.4-10.4); Monocytes # (auto) 0.43 K/uL (0.11-0.59); Monocytes % (auto) 4.1 %; Neutrophils # (auto) 9.33 K/uL (1.4-6.5); Platelet Count 251 K/uL (130-400); RDW Coefficient of Variation 13.7 % (11.5-14.5); RDW Standard Deviation 46.6 fL (36.4-46.3); Red Blood Count 4.07 M/uL (4.7-6.1); White Blood Count 10.48 K/uL (4.8-10.8)
[2019-07-14] MEDS: CEFAZOLIN 2000MG 2,000 MG/15 ML SYR IV SCH (05:40)
[2019-07-14 05:44] LABS: BUN Creatinine Ratio 13.4 (10-20); Calcium 8.5 mg/dl (8.5-10.1); Creatinine Clr Calc Pharmacy 83.1 ml/min; Est GFR (African American) 93.3; Est GFR (Non-African American) 80.5; Magnesium 1.8 mg/dl (1.8-2.4); Phosphorus 3.1 mg/dl (2.5-4.9); Potassium 4.1 mmol/L (3.5-5.1)
--- NOTE | 2019-07-14 07:50 | Critical Care Progress Note ---
Date of Service July 14, 2019 Assessment & Plan (1) Stenosis of right carotid artery: Impression: 74-year-old male status post right carotid endarterectomy for asymptomatic carotid stenosis. He has multiple medical problems underlying including diabetes, coronary artery disease, peripheral neuropathy Recommendations: 1. Post carotid endarterectomy: Management per vascular surgery. Continue blood pressure control. 2. Coronary artery disease: Continue aspirin as well as nitrates. Had extensive evaluation with prior to surgery. No evidence of ischemia. 3. Diabetes: Continue glimepiride and sliding scale insulin as needed 4. Dyspnea on exertion: Would continue to follow clinically at this point time. 5. Patient is on several inhalers however he had PFTs performed which were essentially normal. This would argue against significant COPD. Disposition for vascular surgery. Will sign off once he leaves the ICU. Feel free to contact us if we can be of additional assistance. (2) Diabetes mellitus with peripheral circulatory disorder: Subjective Patient seen and examined. EMR reviewed. Overnight events reviewed. Discussed with bedside ICU nurse and patient. Patient is done well overnight. Blood pressure has been within acceptable parameters. He did experience some nausea associated with Percocet. He is not had any new neurological symptoms. He denies any chest pain or palpitations. No vision changes. He is experiencing some mild tenderness at his incision sites. They appear to be clean dry and intact. Review of Systems Review of Systems: All systems reviewed & are unremarkable except as noted in HPI & below Physical Exam Constitutional: WD/WN, vitals as above Neck: trachea midline, no thyromegaly Incision sites clean dry and intact. No palpable masses or fluctuance Respiratory: normal respiratory effort, lungs clear to auscultation Cardiovascular: RRR, no murmur, no edema Gastrointestinal (Abdomen): normal bowel sounds, soft, nontender, no hepatosplenomegaly Musculoskeletal: Extremities: extremities normal to inspection Skin: no rashes, warm and dry Lymphatic: no cervical lymphadenopathy Results & Data ([facility]) Vital Signs (Past 12 Hours) Vital Signs Temp Pulse Resp BP Pulse Ox 07/14/19 06:00 79 24 134/49 L 98 07/14/19 05:00 77 19 121/50 L 99 07/14/19 04:00 37 C 79 27 H 105/61 96 07/14/19 03:00 76 25 H 110/48 L 98 07/14/19 02:00 77 22 129/69 98 07/14/19 01:00 75 21 112/67 98 07/14/19 00:00 36.9 C 76 27 H 127/69 97 07/13/19 23:00 77 23 125/70 99 07/13/19 22:00 78 22 127/59 L 98 07/13/19 21:00 84 23 97 07/13/19 20:00 37.2 C 82 24 160/71 H 100 Laboratory Results 07/14/19 05:05 07/14/19 05:05 Diagnostic Findings No new imaging Coding Level of Care Code 16687 Subseq Hosp Care Lvl 2 Diagnoses Stenosis of right carotid artery I65.21 Diabetes mellitus with peripheral circulatory disorder E11.51
[2019-07-14] MEDS: CITALOPRAM 20 MG TAB PO SCH (07:57)
[2019-07-14] MEDS: PANTOprazole 40 MG TAB PO SCH (07:57)
[2019-07-14] MEDS: GABAPENTIN 400 MG CAP PO SCH ×3 (07:57→21:31)
[2019-07-14] MEDS: ISOSORBIDE MONO EXTENDED REL 30 MG TABCR PO SCH (07:57)
[2019-07-14] MEDS: MAGNESIUM OXIDE 400 MG TAB PO SCH (07:57)
[2019-07-14] MEDS: GLIMEPIRIDE 2 MG TAB PO SCH ×2 (07:58→16:38)
[2019-07-14] MEDS: ASPIRIN 81 MG ECTAB PO SCH (08:02)
[2019-07-14] MEDS ORDERED: ICU PROTOCOL FOR HYPERGLYCEMIA SCH (09:00)
[2019-07-14] MEDS ORDERED: ACETAMINOPHEN 500 MG TAB PO PRN (09:49)
[2019-07-14] MEDS ORDERED: GLUCOSE 40% GEL 15 GM TUBE PO PRN (11:00)
[2019-07-14] MEDS ORDERED: CARBOHYDRATES FOR HYPOGLYCEMIA PO PRN (11:00)
[2019-07-14] MEDS ORDERED: GLUCOSE 10 TABS/TUBE PO PRN (11:00)
[2019-07-14] MEDS ORDERED: GLUCAGON FOR INJ 1 MG VIAL IM PRN (11:00)
[2019-07-14] MEDS ORDERED: DEXTROSE 50% 50 ML SYRINGE IV PRN (11:00)
[2019-07-14] MEDS: INSULIN ASPART 100 UNITS/ML 3 ML PEN SC SCH ×3 (11:55→21:36)
--- NOTE | 2019-07-14 13:32 | Surgery Progress Note ---
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 Most likely due to his previous neck radiation and his intubation yesterday. Speech therapy saw patient Will start the recommendations from his abnormal swallowing study from last year. (2) Stenosis of right carotid artery: Doing well from his surgery other than above noted. Will transfer to PCU for monitoring. Subjective Patient complaining of a moderate headache. Also has difficulty swallowing. Had this pre op but may be slightly worse since his surgery from yesterday. He did eat breakfast this morning. Denies any other focal findings. Also complains of naseousness from the percocet. Physical Exam Constitutional: WD/WN, vitals as above Neck: trachea midline Incision dry and clean with minimal edema Respiratory: Auscultation: lungs clear to auscultation bilaterally Cardiovascular: Rate/Rhythm: regular rate and regular rhythm Neurologic: moves all extremities; + CN's not intact and no focal motor deficits difficulty swallowing, slightly worse than pre op Psychiatric: Orientation: alert and oriented x 3 Results & Data Vital Signs (Past 12 Hours) Vital Signs Temp Pulse Pulse Resp BP BP Pulse Ox 07/14/19 11:30 86 24 94 07/14/19 11:00 80 20 99/71 L 95 07/14/19 10:00 86 23 112/71 94 07/14/19 09:00 80 74 21 105/74 105/74 90 07/14/19 08:00 79 32 H 122/65 92 07/14/19 07:01 77 22 106/57 L 99 07/14/19 07:00 36.8 C 77 21 106/57 L 99 07/14/19 06:45 77 22 99 07/14/19 06:30 79 26 H 98 07/14/19 06:15 85 19 98 07/14/19 06:00 79 24 134/49 L 98 07/14/19 05:00 77 19 121/50 L 99 07/14/19 04:00 37 C 79 27 H 105/61 96 07/14/19 03:00 76 25 H 110/48 L 98 07/14/19 02:00 77 22 129/69 98
[2019-07-14] MEDS: ACETAMINOPHEN 1,000 MG/100 ML VIAL IV PRN (21:27)
[2019-07-14] MEDS: UMECLIDINIUM/VILANTEROL 62.5/25MCG 7 PUFFS/INHALER INH SCH (21:32)
[2019-07-15] MEDS: SODIUM CHLORIDE 0.45 % 1,000 ML IV SCH ×2 (04:24→16:39)
[2019-07-15] MEDS: ACETAMINOPHEN 1,000 MG/100 ML VIAL IV PRN (06:05)
[2019-07-15] MEDS: INSULIN ASPART 100 UNITS/ML 3 ML PEN SC SCH ×4 (07:00→21:51)
[2019-07-15] MEDS: GLIMEPIRIDE 2 MG TAB PO SCH (08:01)
[2019-07-15] MEDS: MAGNESIUM OXIDE 400 MG TAB PO SCH (08:39)
[2019-07-15] MEDS: ASPIRIN 81 MG ECTAB PO SCH (08:39)
[2019-07-15] MEDS: PANTOprazole 40 MG TAB PO SCH (08:39)
[2019-07-15] MEDS: ISOSORBIDE MONO EXTENDED REL 30 MG TABCR PO SCH (08:39)
[2019-07-15] MEDS: GABAPENTIN 400 MG CAP PO SCH ×2 (08:39→13:28)
[2019-07-15] MEDS: CITALOPRAM 20 MG TAB PO SCH (08:39)
--- NOTE | 2019-07-15 14:25 | Surgery Progress Note ---
Date of Service July 15, 2019 Assessment & Plan (1) Stenosis of right carotid artery: Surgery site doing well (2) Dysphagia: Dysphagia worse than pre op since surgery and intubation from the surgery. Appreciate speech therapy input. Will keep NPO. Consult Medicine for insertion of coresafe tube and management. Subjective Still with difficulty swallowing. Claims it is worse since surgery. He did have problems pre op but was able to handle they dysphagia. Physical Exam Constitutional: WD/WN, vitals as above Neck: trachea midline Less edema. Incision dry and clean. Respiratory: normal respiratory effort Cardiovascular: Rate/Rhythm: regular rate and regular rhythm Neurologic: No focal deficits. Psychiatric: Orientation: alert and oriented x 3 Results & Data Vital Signs (Past 12 Hours) Vital Signs Temp Pulse Pulse Resp BP BP Pulse Ox 07/15/19 11:14 36.6 C 91 H 20 168/78 H 91 07/15/19 08:05 78 07/15/19 07:20 36.3 C L 85 20 164/84 H 90 07/15/19 03:28 37.0 C 73 18 111/66 95
--- NOTE | 2019-07-15 14:49 | Hospitalist Consultation ---
Date of Consultation July 15, 2019 Assessment & Plan (1) Dysphagia: History of tongue carcinoma s/p radiation ~7 years ago. Had a video swallow in 02/2019 that showed high risk for aspiration. After intubation, now having more trouble and overtly aspirating. - Seen by TAXICAB DISPATCHER -> Plan for clor-safe feeding tube and tube feeds. All oral meds through NG tube until re-assessed on Friday or Friday by speech. - If no improvement, will need to discuss goals of care with patient. (2) Stenosis of right carotid artery: S/p right CEA with Dr. Felipe on 07/13. - Post-operative care per primary team - DVT ppx per primary team (3) CAD (coronary artery disease), [place] coronary artery: Multivessel CAD s/p multiple LAD and RCA PCI. No chest pain at present. - Continue home ASA, Imdur - Unclear why not on a beta-ghada -> Pursue outpatient (4) Type 2 diabetes mellitus: A1c was 7.9% in 05/2019. - Hold home oral meds - Sliding scale insulin (5) COPD, mild: No shortness of breath at present. No wheezing on exam. - Continue home inhaler equivalent - DuoNebs PRN (6) GERD (gastroesophageal reflux disease): - Will give liquid PPI while NG tube is in. (7) Aortic stenosis: Not severe last fall when seen by cardiology. - Routine outpatient monitoring (8) DVT prophylaxis: SCDs - Heparin per primary team given his post-op status History of Present Illness Attending Physician: Roberto Carlos Felipe MD History of Present Illness 74yo M w/ hx of tongue cancer s/p radiation who presents as a medical consult for dysphagia. Overall, the patient reports that he is cold from the radiator, but otherwise has no major complaints. He is dismayed about the trouble swallowing and wants to get some calories. Allergies Allergy/AdvReac Type Severity Reaction Status Date / Time clopidogrel Allergy Intermediate rash Verified 07/13/19 08:07 atorvastatin AdvReac Intermediate elevated Verified 07/13/19 08:07 liver enzymes Home Medications Home Medications Medication Instructions Recorded Confirmed Type blood sugar diagnostic #100 ea 02/08/19 07/01/19 Rx gabapentin 400 mg capsule 400 mg PO TID #270 cap 02/08/19 07/13/19 Rx lancets 33 gauge #100 ea 02/08/19 07/01/19 Rx albuterol sulfate 90 mcg/actuation 2 puffs INHALATION Q4H PRN #18 gm 03/23/19 07/13/19 Rx aerosol inhaler isosorbide mononitrate 60 mg 90 mg PO QAM #45 tab 06/23/19 07/13/19 Rx tablet,extended release 24 hr Stiolto Respimat 2 puff INHALATION QPM 07/01/19 07/13/19 History aspirin [Aspirin Low Dose] 81 mg PO QAM 07/01/19 07/13/19 History citalopram 20 mg PO QAM 07/01/19 07/13/19 History glimepiride 1 mg PO BIDM 07/01/19 07/13/19 History magnesium oxide 400 mg PO QAM 07/01/19 07/13/19 History omeprazole 40 mg PO QAM 07/01/19 07/13/19 History Patient History Medical History Anxiety Aortic stenosis (Acute) Barretts esophagus (Acute) CAD (coronary artery disease), [place] coronary artery s/p stent x 2 in 1980s, single stent 2017. Most recent cath 2019 showed patent stents and moderate non-obstructive CAD in non-stented vessels. Carotid stenosis (Acute) COPD, mild (Acute) Depression Diabetes mellitus, type 2 A1C 7.9% 05/2019. Dyspnea on exertion GERD (gastroesophageal reflux disease) (Acute) Hx of tongue cancer had chemo and radiation - 7 yr ago - [facility] Transient ischemic attack (TIA) 6-8 mo ago - presented with ataxia/balance issues. Brain MRI showed no acute or subacute infarct. Surgical History History of cardiac cath 1979"s - stent x2; 2018 - x1 stent; 2019 - no stents -all caths [facility] per pt History of hernia repair History of lumbar laminectomy History of PTCA Hx of colonoscopy Family History Sister Diabetes Brother Diabetes Heart disease Lung disease Social History Preferred Language: Greenlandic Communication Ability: Effective Tire Beader Maker Required: No Beliefs That Will Affect Care: None Current Living Situation: Spouse Feels Safe at Home: Yes Safety Concerns: Feels Safe At This Time Smoking Status: Never smoker Do You Dip or Chew Tobacco: No ; Second Hand Exposure: No ; Hx Alcohol Use: Yes Alcohol type: beer Hx Substance Use: No Review of Systems Review of Systems: All systems reviewed & are unremarkable except as noted in HPI & below Physical Exam Constitutional: WD/WN, vitals as above Eyes: EOM intact bilaterally; no conjunctival abnormality ENMT: external ear and nose normal, oropharynx normal Neck: trachea midline, no thyromegaly + abnormal visual inspection (Scarring on the right side of the neck) Respiratory: normal respiratory effort, lungs clear to auscultation no respiratory distress Cardiovascular: RRR, no murmur, no edema Gastrointestinal (Abdomen): Inspection/Auscultation: abdomen normal to inspection; abdomen not distended Musculoskeletal: no cyanosis or clubbing, extremities motor strength 5/5 Skin: no rashes, warm and dry Neurologic: moves all extremities and awake Psychiatric: Orientation: alert, oriented to person and cooperative Results & Data ([facility]) Vital Signs (Past 12 Hours) Vital Signs Temp Pulse Pulse Resp BP BP Pulse Ox 07/15/19 11:14 36.6 C 91 H 20 168/78 H 91 07/15/19 08:05 78 07/15/19 07:20 36.3 C L 85 20 164/84 H 90 07/15/19 03:28 37.0 C 73 18 111/66 95 PG Care Time/CCT Total # of Minutes Spent Total Time Spent with Patient: Total time spent is greater than 50% in coordination of care (as documented) at patient's floor/unit and/or counseling patient: Coding Level of Care Code 65961 Inpt Consult Level 4 Diagnoses Dysphagia R13.10 Stenosis of right carotid artery I65.21 CAD (coronary artery disease), [place] coronary artery I25.10 Type 2 diabetes mellitus E11.9 COPD, mild J44.9 GERD (gastroesophageal reflux disease) K21.9 Aortic stenosis I35.0 DVT prophylaxis Z29.9
[2019-07-15] MEDS ORDERED: CHLORASEPTIC 1.4% SOLN 180 ML BTL MT PRN (15:04)
--- NOTE | 2019-07-15 17:11 | XRay Report ---
KUB HISTORY: coresafe feeding tube placement COMPARISON: None. FINDINGS: The bowel gas pattern is unremarkable. There are no dilated loops of small bowel to suggest an obstruction. No renal calculi. No ureteral calculi. No pneumoperitoneum or pneumatosis. The tip of the feeding tube appears to be within a postpyloric position at the proximal duodenum. IMPRESSION: Tip of the feeding tube appears in good position. ACT 112: Negative or not required by law. Electronically signed by: Ilan Huerta M.D. 07/15/2019 5:10 PM
[2019-07-15] MEDS: PEPTAMEN INTENSE VHP 1.0 CAL 1,000 ML BAG ND SCH ×3 (17:34→22:07)
[2019-07-15] MEDS: ASPIRIN 81 MG CHEW NG SCH (17:34)
[2019-07-15] MEDS: LANSOPRAZOLE 15 MG SOLTAB NG SCH (17:34)
[2019-07-15] MEDS: UMECLIDINIUM/VILANTEROL 62.5/25MCG 7 PUFFS/INHALER INH SCH (21:17)
[2019-07-15] MEDS: GABAPENTIN 250 MG/5 ML 470 ML BTL PO SCH (21:20)
[2019-07-16] MEDS: SODIUM CHLORIDE 0.45 % 1,000 ML IV SCH ×2 (04:36→16:51)
[2019-07-16 06:04] LABS: Hematocrit (blood only) 38.4 % (42-52); Hemoglobin 13.3 g/dL (14.0-18.0); Mean Corpuscular Hemoglobin 32.3 pg (25-34); Mean Corpuscular Hgb Conc 34.6 g/dL (32-36); Mean Corpuscular Volume 93.2 fL (80-100); Platelet Count 297 K/uL (130-400); RDW Coefficient of Variation 13.2 % (11.5-14.5); RDW Standard Deviation 45.2 fL (36.4-46.3); Red Blood Count 4.12 M/uL (4.7-6.1); White Blood Count 8.79 K/uL (4.8-10.8)
[2019-07-16 06:37] LABS: BUN Creatinine Ratio 14.2 (10-20); Calcium 8.9 mg/dl (8.5-10.1); Creatinine Clr Calc Pharmacy 106.4 ml/min; Est GFR (Non-African American) 90.6; Magnesium 2.1 mg/dl (1.8-2.4); Potassium 3.8 mmol/L (3.5-5.1)
[2019-07-16] MEDS: INSULIN ASPART 100 UNITS/ML 3 ML PEN SC SCH ×3 (07:15→18:37)
[2019-07-16] MEDS: MAGNESIUM OXIDE 400 MG TAB PO SCH (08:25)
[2019-07-16] MEDS: CITALOPRAM 20 MG TAB PO SCH (08:26)
[2019-07-16] MEDS: ASPIRIN 81 MG CHEW NG SCH (08:26)
[2019-07-16] MEDS: LANSOPRAZOLE 15 MG SOLTAB NG SCH (08:27)
[2019-07-16] MEDS: GABAPENTIN 250 MG/5 ML 470 ML BTL PO SCH ×3 (08:30→20:37)
--- NOTE | 2019-07-16 09:18 | Surgery Progress Note ---
Date of Service July 16, 2019 Assessment & Plan (1) Stenosis of right carotid artery: Pt doing well pod #3 after R CEA from vascular standpoint. Neck incision healing well. (2) Dysphagia: Dysphagia worse than pre op since surgery and intubation from the surgery. Appreciate speech therapy input. Will keep NPO. Pt now with coresafe feeding tube. Subjective 74 yo M POD #3 after R CEA. Still with difficulty swallowing, related to hx of tongue ca and neck radiation, worsened since general anesthesia/surgery. Pt NPO, currently receiving nutrition via coresafe NG feeding tube. Pt denies any complaints other than the feeding tube uncomfortable. Review of Systems Review of Systems: All systems reviewed & are unremarkable except as noted in HPI & below Physical Exam Constitutional: WD/WN, vitals as above ENMT: NG tube noted Neck: R neck incision C/D/I, mild soft local edema. No erythema, drainage, ecchymosis. Respiratory: normal respiratory effort, lungs clear to auscultation Cardiovascular: RRR, no murmur, no edema Gastrointestinal (Abdomen): normal bowel sounds, soft, nontender, no hepatosplenomegaly Musculoskeletal: no cyanosis or clubbing, extremities motor strength 5/5 Neurologic: moves all extremities; no focal motor deficits Psychiatric: A+Ox3, euthymic affect Results & Data Vital Signs (Past 12 Hours) Vital Signs Temp Pulse Pulse Resp BP BP Pulse Ox 07/16/19 07:54 36.4 C L 93 H 18 191/92 H 201/98 H 94 07/16/19 04:45 36.8 C 88 19 167/72 H 93 07/16/19 00:00 36.7 C 88 82 19 175/85 H 95
--- NOTE | 2019-07-16 13:50 | Hospitalist Progress Note ---
Date of Service July 16, 2019 Assessment & Plan (1) Dysphagia: History of tongue carcinoma s/p radiation ~7 years ago. Had a video swallow in 02/2019 that showed high risk for aspiration. After intubation, now having more trouble and overtly aspirating. - Seen by SUPERVISOR COLD ROLLING -> Plan for Coresafe feeding tube and tube feeds. All oral meds through NG tube until re-assessed on Friday or Friday by speech. - If no improvement, will need to discuss goals of care with patient. Stable today. Tolerating tube feeds well. (2) Stenosis of right carotid artery: S/p right CEA with Dr. Felipe on 07/13. - Post-operative care per primary team - DVT ppx per primary team (3) CAD (coronary artery disease), [place] coronary artery: Multivessel CAD s/p multiple LAD and RCA PCI. No chest pain at present. - Continue home ASA, Imdur - Will start carvedilol today for BP and HR (4) Type 2 diabetes mellitus: A1c was 7.9% in 05/2019. - Hold home oral meds - Sliding scale insulin (5) COPD, mild: No shortness of breath at present. No wheezing on exam. - Continue home inhaler equivalent - DuoNebs PRN (6) GERD (gastroesophageal reflux disease): - Will give liquid PPI while NG tube is in. (7) Aortic stenosis: Not severe last fall when seen by cardiology. - Routine outpatient monitoring (8) DVT prophylaxis: SCDs - Heparin per primary team given his post-op status Admission and Anticipated Discharge Date Admission Date: July 13, 2019 Subjective Doing well today. Tolerating the Coresafe and getting tube feeds. Overall, stable. Reports no fevers/chills, chest pain, shortness of breath, abdominal pain, nausea, or vomiting. Physical Exam Constitutional: WD/WN, vitals as above Eyes: EOM intact bilaterally; no conjunctival abnormality ENMT: external ear and nose normal, oropharynx normal Neck: trachea midline, no thyromegaly + abnormal visual inspection (Scarring on the right side of the neck) Respiratory: normal respiratory effort, lungs clear to auscultation no respiratory distress Cardiovascular: RRR, no murmur, no edema Gastrointestinal (Abdomen): Inspection/Auscultation: abdomen normal to inspection; abdomen not distended Musculoskeletal: no cyanosis or clubbing, extremities motor strength 5/5 Skin: no rashes, warm and dry Neurologic: moves all extremities and awake Psychiatric: Orientation: alert, oriented to person and cooperative Results & Data ([facility]) Vital Signs (Past 12 Hours) Vital Signs Temp Pulse Resp BP BP Pulse Ox 07/16/19 13:37 36.8 C 74 20 182/111 H 95 07/16/19 11:00 37.0 C 73 20 169/82 H 94 07/16/19 09:16 189/91 H 07/16/19 07:54 36.4 C L 93 H 18 191/92 H 201/98 H 94 07/16/19 04:45 36.8 C 88 19 167/72 H 93 PG Care Time/CCT Total # of Minutes Spent Total Time Spent with Patient: Total time spent is greater than 50% in coordination of care (as documented) at patient's floor/unit and/or counseling patient: Coding Level of Care Code 61624 Subseq Hosp Care Lvl 3 Diagnoses Dysphagia R13.10 Stenosis of right carotid artery I65.21 CAD (coronary artery disease), [place] coronary artery I25.10 Type 2 diabetes mellitus E11.9 COPD, mild J44.9 GERD (gastroesophageal reflux disease) K21.9 Aortic stenosis I35.0 DVT prophylaxis Z29.9
[2019-07-16] MEDS: carvediloL 6.25 MG TAB PO SCH (20:33)
[2019-07-16] MEDS: UMECLIDINIUM/VILANTEROL 62.5/25MCG 7 PUFFS/INHALER INH SCH (20:33)
[2019-07-17] MEDS: INSULIN ASPART 100 UNITS/ML 3 ML PEN SC SCH ×5 (00:16→23:59)
[2019-07-17] MEDS: SODIUM CHLORIDE 0.45 % 1,000 ML IV SCH ×2 (05:43→18:12)
--- NOTE | 2019-07-17 09:12 | Surgery Progress Note ---
Date of Service July 17, 2019 Assessment & Plan (1) Stenosis of right carotid artery: Pt doing well pod #3 after R CEA from vascular standpoint. Neck incision healing well. (2) Dysphagia: He has his feeding tube in place. He was attempting to swallow his saliva at this point during exam. It did sound like he was tried to expectorate it. He did not frankly choke or gag on it. We will continue to rest his swallowing mechanism. I am hopeful that the worsening of his swallowing was secondary to neck edema from the intubation surgical procedure and that with time it should resolve or get him back to his baseline. Subjective 74 yo male who underwent a carotid endarterectomy earlier this week. Still with difficulty swallowing, related to hx of tongue ca and neck radiation, worsened since general anesthesia/surgery. He has feeding tube in place. He is n.p.o. at this time. He did claim today that he feels like he may be swallowing his saliva slightly better. He says it could be in his opinion back to his baseline. Physical Exam Constitutional: WD/WN, vitals as above Neck: trachea midline Respiratory: normal respiratory effort Auscultation: lungs clear to auscultation bilaterally Cardiovascular: Rate/Rhythm: regular rate and regular rhythm Neurologic: moves all extremities; + CN's not intact and no focal motor deficits Psychiatric: Orientation: alert and oriented x 3 Results & Data Vital Signs (Past 12 Hours) Vital Signs Temp Pulse Resp BP BP Pulse Ox 07/17/19 07:51 36.5 C 79 19 177/82 H 96 07/16/19 23:18 36.3 C L 69 18 144/81 H 91
[2019-07-17] MEDS: LANSOPRAZOLE 15 MG SOLTAB NG SCH (09:31)
[2019-07-17] MEDS: CITALOPRAM 20 MG TAB PO SCH (09:32)
[2019-07-17] MEDS: ASPIRIN 81 MG CHEW NG SCH (09:32)
[2019-07-17] MEDS: MAGNESIUM OXIDE 400 MG TAB PO SCH (09:32)
[2019-07-17] MEDS: carvediloL 6.25 MG TAB PO SCH ×2 (09:32→20:37)
[2019-07-17] MEDS: GABAPENTIN 250 MG/5 ML 470 ML BTL PO SCH ×3 (09:34→20:44)
[2019-07-17] MEDS: PEPTAMEN INTENSE VHP 1.0 CAL 1,000 ML BAG ND SCH (12:37)
[2019-07-17] MEDS: ACETAMINOPHEN SOL 650 MG/20.3 ML UDC NG PRN (14:14)
[2019-07-17] MEDS: UMECLIDINIUM/VILANTEROL 62.5/25MCG 7 PUFFS/INHALER INH SCH (20:38)
[2019-07-18] MEDS: SODIUM CHLORIDE 0.45 % 1,000 ML IV SCH ×3 (05:37→23:50)
[2019-07-18] MEDS: INSULIN ASPART 100 UNITS/ML 3 ML PEN SC SCH ×4 (05:37→23:49)
[2019-07-18] MEDS: PEPTAMEN INTENSE VHP 1.0 CAL 1,000 ML BAG ND SCH ×2 (05:51→23:30)
--- NOTE | 2019-07-18 08:15 | Surgery Progress Note ---
Date of Service July 18, 2019 Assessment & Plan (1) Dysphagia: This patient is tolerating his tube feedings. He states at this time that he feels his throat is back to baseline. He does occasionally have to clear his throat at home. He claims that he is adjusted to his swallowing dysfunction and is able to eat and drink at home without too much difficulty. We will reevaluate his swallowing capability either today or tomorrow with a video swallowing study as per speech therapy. Further plans will be determined by those results. Subjective 74 yo male who underwent a carotid endarterectomy earlier this week. Still with difficulty swallowing, related to hx of tongue ca and neck radiation, worsened since general anesthesia/surgery. He claims that his throat is feeling better. He states that he feels like he is back to baseline. He is taking ice chips and claiming that he is not choking or gagging on them. Physical Exam Constitutional: WD/WN, vitals as above Respiratory: normal respiratory effort Auscultation: lungs clear to auscultation bilaterally Cardiovascular: Rate/Rhythm: regular rate and regular rhythm Neurologic: moves all extremities; + CN's not intact and no focal motor deficits Psychiatric: Orientation: alert and oriented x 3 Results & Data Vital Signs (Past 12 Hours) Vital Signs Temp Pulse Resp BP BP Pulse Ox 07/18/19 07:39 36.4 C L 75 16 158/74 H 93 07/18/19 00:20 36.3 C L 65 20 137/74 95 07/17/19 20:36 174/82 H
[2019-07-18] MEDS: MAGNESIUM OXIDE 400 MG TAB PO SCH (08:46)
[2019-07-18] MEDS: LANSOPRAZOLE 15 MG SOLTAB NG SCH (08:46)
[2019-07-18] MEDS: GABAPENTIN 250 MG/5 ML 470 ML BTL PO SCH ×3 (08:46→21:10)
[2019-07-18] MEDS: CITALOPRAM 20 MG TAB PO SCH (08:46)
[2019-07-18] MEDS: carvediloL 6.25 MG TAB PO SCH ×2 (08:46→21:10)
[2019-07-18] MEDS: ASPIRIN 81 MG CHEW NG SCH (08:50)
--- NOTE | 2019-07-18 13:06 | Hospitalist Progress Note ---
Date of Service July 18, 2019 Assessment & Plan (1) Dysphagia: History of tongue carcinoma s/p radiation ~7 years ago. Had a video swallow in 02/2019 that showed high risk for aspiration. After intubation, now having more trouble and overtly aspirating. - Seen by CLINICAL RESOURCE DIRECTOR -> Plan for Coresafe feeding tube and tube feeds. All oral meds through NG tube until re-assessed on Friday or Friday by speech. - Reassess on Friday -> If passes, no need for further testing and the patient can be discharged. Otherwise, CLINICAL RESOURCE DIRECTOR will likely due a video swallow. (2) Stenosis of right carotid artery: S/p right CEA with Dr. Felipe on 07/13. - Post-operative care per primary team - DVT ppx per primary team (3) CAD (coronary artery disease), [place] coronary artery: Multivessel CAD s/p multiple LAD and RCA PCI. No chest pain at present. - Continue home ASA, Imdur - Will start carvedilol today for BP and HR (4) Type 2 diabetes mellitus: A1c was 7.9% in 05/2019. - Hold home oral meds - Sliding scale insulin -> Sugars good the last few days. (5) COPD, mild: No shortness of breath at present. No wheezing on exam. - Continue home inhaler equivalent - DuoNebs PRN (6) GERD (gastroesophageal reflux disease): - Will give liquid PPI while NG tube is in. (7) Aortic stenosis: Not severe last fall when seen by cardiology. - Routine outpatient monitoring (8) DVT prophylaxis: SCDs - Heparin per primary team given his post-op status Given medical stability, Hospital Medicine team will sign off. Please re-consult with any questions or concerns. Thank you for letting us assist in the care of this patient! Discharge recs: 1) Re-evaluate CLINICAL RESOURCE DIRECTOR on Friday. Video swallow if CLINICAL RESOURCE DIRECTOR thinks necessary. He reports he will go home tomorrow regardless. 2) Discharge on carvedilol 6.25 mg PO BID. I added this to his home med list. Admission and Anticipated Discharge Date Admission Date: July 13, 2019 Subjective Feels his swallowing is back to normal, but not evaluated by speech today. Reports no fevers/chills, chest pain, shortness of breath, abdominal pain, nausea, or vomiting. Physical Exam Constitutional: WD/WN, vitals as above Eyes: EOM intact bilaterally; no conjunctival abnormality ENMT: external ear and nose normal, oropharynx normal Neck: trachea midline, no thyromegaly + abnormal visual inspection (Scarring on the right side of the neck) Respiratory: normal respiratory effort, lungs clear to auscultation no respiratory distress Cardiovascular: RRR, no murmur, no edema Gastrointestinal (Abdomen): Inspection/Auscultation: abdomen normal to inspection; abdomen not distended Musculoskeletal: no cyanosis or clubbing, extremities motor strength 5/5 Skin: no rashes, warm and dry Neurologic: moves all extremities and awake Psychiatric: Orientation: alert, oriented to person and cooperative Results & Data ([facility]) Vital Signs (Past 12 Hours) Vital Signs Temp Pulse Resp BP Pulse Ox 07/18/19 07:39 36.4 C L 75 16 158/74 H 93 PG Care Time/CCT Total # of Minutes Spent Total Time Spent with Patient: Total time spent is greater than 50% in coordination of care (as documented) at patient's floor/unit and/or counseling patient: Coding Level of Care Code 16124 Subseq Hosp Care Lvl 3 Diagnoses Dysphagia R13.10 Stenosis of right carotid artery I65.21 CAD (coronary artery disease), [place] coronary artery I25.10 Type 2 diabetes mellitus E11.9 COPD, mild J44.9 GERD (gastroesophageal reflux disease) K21.9 Aortic stenosis I35.0 DVT prophylaxis Z29.9
[2019-07-18] MEDS: UMECLIDINIUM/VILANTEROL 62.5/25MCG 7 PUFFS/INHALER INH SCH (21:06)
[2019-07-18] MEDS: ACETAMINOPHEN SOL 650 MG/20.3 ML UDC NG PRN (21:10)
[2019-07-19] MEDS: INSULIN ASPART 100 UNITS/ML 3 ML PEN SC SCH ×2 (06:03→12:12)
[2019-07-19] MEDS: GABAPENTIN 250 MG/5 ML 470 ML BTL PO SCH ×2 (07:31→14:12)
[2019-07-19] MEDS: ASPIRIN 81 MG CHEW NG SCH (07:31)
[2019-07-19] MEDS: CITALOPRAM 20 MG TAB PO SCH (07:32)
[2019-07-19] MEDS: MAGNESIUM OXIDE 400 MG TAB PO SCH (07:32)
[2019-07-19] MEDS: LANSOPRAZOLE 15 MG SOLTAB NG SCH (07:32)
[2019-07-19] MEDS: carvediloL 6.25 MG TAB PO SCH (07:33)
--- NOTE | 2019-07-19 09:32 | Surgery Progress Note ---
Date of Service July 19, 2019 Assessment & Plan (1) Dysphagia: Pt to undergo repeat VSS today. If he passes, pt can be d/c home. If not, further plans will need to be arranged. (2) S/P carotid endarterectomy: Pt doing well post op from R CEA, healing well. Will need follow up appt in approx 6 weeks in office. Subjective 74 yo m POD #7 after R CEA, seen in f/u today. Pt with increased dysphagia since surgery, but states this is improved at this time. Is scheduled for reassessment by ANIMAL IMPERSONATOR today. Pt tolerating tube feedings currently. Review of Systems Review of Systems: All systems reviewed & are unremarkable except as noted in HPI & below Physical Exam Constitutional: WD/WN, vitals as above Neck: + abnormal visual inspection (R neck incision C/D/I, nontdner, minimal local edema) Respiratory: normal respiratory effort, lungs clear to auscultation Cardiovascular: RRR, no murmur, no edema Gastrointestinal (Abdomen): normal bowel sounds, soft, nontender, no hepatosplenomegaly Musculoskeletal: no cyanosis or clubbing, extremities motor strength 5/5 Neurologic: moves all extremities; no focal motor deficits Psychiatric: A+Ox3, euthymic affect Results & Data Vital Signs (Past 12 Hours) Vital Signs Temp Pulse Pulse Pulse Resp BP BP 07/19/19 07:56 36.4 C L 62 16 133/79 07/19/19 07:35 36.4 C L 62 14 133/79 07/18/19 23:30 36.3 C L 57 L 18 119/58 L Pulse Ox 07/19/19 07:56 94 07/19/19 07:35 94 07/18/19 23:30 96
[2019-07-19] MEDS: SODIUM CHLORIDE 0.45 % 1,000 ML IV SCH (11:12)
--- NOTE | 2019-07-19 13:21 | Fluoroscopy Report ---
FL video swallow CLINICAL HISTORY: 74 years-old Male with overt s/s of aspiration. Acute dysphasia TECHNIQUE: Video fluoroscopic evaluation of swallowing was performed in the AP and lateral projection s by the speech pathology staff. The patient is fed nectar-thick and thin liquid barium, a barium coa joelle wafer, and barium pudding. FLUOROSCOPY TIME: 2.1 minutes. COMPARISON STUDY: Swallow study 03/11/2019 FINDINGS: Trace silent aspiration with all consistencies. Mildly disordered oropharyngeal transit red emonstrated along with vallecular and piriform sinus retention of solid consistencies. There is decre ased epiglottic inversion throughout the study. Degenerative changes noted throughout the cervical sp ine. IMPRESSION: 1. Aspiration as above. 2. Please see the speech pathologist report for detailed findings and recommendations. ACT 112: Negative or not required by law. Electronically signed by: Karel Cruz M.D. 07/19/2019 1:20 PM
--- NOTE | 2019-07-19 13:48 | Communication Note ---
Date of Service: July 19, 2019 Swallowing study is back to baseline. Will d/c today.
--- NOTE | 2019-07-27 08:44 | Discharge Summary ---
Date of Service July 27, 2019 Admission HPI Per Admitting Provider Peter is a 74-year-old gentleman with multiple medical problems including hx CVA, hx tongue ca s/p radiation/chemo, CAD, peripheral neuropathy, HTN, DMII, aortic stenosis, COPD, GERD, who was found to have a severe stenosis right internal carotid artery on ultrasound. This was confirmed by CTA. He denies any focal findings of weakness, paralysis, facial droop, speech difficulties, or transient blindness. He also has a history of neck radiation secondary to a nodule of the back of his tongue approximately 8 years ago. He also denies any symptoms of claudication. He was recommended to undergo R carotid endarte rectomy d/t the severe stenosis noted there. Risks, benefits and alternatives were discussed with pt and he was agreeable to proceed. Admission Exam Per Admitting Provider On exam patient is awake and alert and oriented x3. He is in no apparent distress. His blood pressure is 138/68 on the right 130/68 on the left. His neck is supple. I cannot appreciate carotid bruits. Lungs are clear to auscultation. Heart had a regular rate and rhythm. There is a 2/6 ejection murmur heard sternal border. Abdominal exam is benign. I cannot appreciate dilatation of the aorta. His radial carotids and superficial temporal artery pulses are +2 bilaterally. His femorals are +2 bilaterally. His pedal pulses are also +2 bilaterally. Neurologic exam is grossly intact to motor and sensory function. Principal Diagnosis 1. s/p R CEA 2. Dysphagia 3. Severe R ICA stenosis Discharge Exam Constitutional WD/WN, vitals as above Neck + abnormal visual inspection (R neck incision C/D/I, nontdner, minimal local edema) Respiratory normal respiratory effort, lungs clear to auscultation Cardiovascular RRR, no murmur, no edema Gastrointestinal (Abdomen) normal bowel sounds, soft, nontender, no hepatosplenomegaly Musculoskeletal no cyanosis or clubbing, extremities motor strength 5/5 Neurologic moves all extremities; no focal motor deficits Psychiatric A+Ox3, euthymic affect Discharge Data Allergies Allergy/AdvReac Type Severity Reaction Status Date / Time clopidogrel Allergy Intermediate rash Verified 07/13/19 08:07 atorvastatin AdvReac Intermediate elevated Verified 07/13/19 08:07 liver enzymes Consultations 07/15/19 11:49 Consult Hospitalist Routine Procedures Performed Operation Date: 07/13/19 09:50 Actual Procedures p Right Carotid Endarterectomy with bovine patch graft (Right) - Roberto Carlos sue MD Ordered Studies 07/19/19 12:45 Fluoro video [FL video swallow] Routine Hospital Course (1) Dysphagia: Pt failed first swallowing study inpt, however, in comparison to previous swallowing study in fall 2018, this was only slightly worse than baseline for him. Pt had NG feeding tube placed for a few days, then swallowing study repeated, which he passed at baseline and was felt to be stable enough for discharge. (2) S/P carotid endarterectomy: Pt doing well post op from R CEA, healing well. Will need follow up appt in approx 6 weeks in office. Total Time Total Time Spent Total Time Spent (In Minutes): 0 Discharge Plan Discharge Items Patient Disposition: Home - Self-Care Reason For Visit: Right Internal Carotid Artery Stenosis Discharge Diagnosis: Right internal carotid stenosis, post carotid endarterectomy Activity: Per Instructions section Lifting: Gradually increase as tolerated Bathing: No limitations Driving/Machine Use: Resume 1 day after discharge Non-emergency contact: Surgeon Call non-emergency contact if: you have any medication questions, your symptoms worsen, your pain is not controlled, your pain is worsening, your pain is unusual for you, your pain is concerning for you, your temperature is above 101.5, your wound has increased redness, your wound has increased drainage and your wound pain has increased Follow-up/Referrals: Matt Mckeon MD [Primary Care Provider] - 07/26/19 2:30 pm Diet: Heart Healthy Diet Comment: small bites, alternating food with sips of liquid Addtl Attending Provider Instructions: SPECIAL CARE INSTRUCTIONS: Speech therapy prescription sent to patient from the office Medications: * Continue to take Aspirin as directed. Incision Care: * You may shower, but do not rub incision. You may let the warm soapy water run over it. Be sure to dry the incision well after bathing. * Do not shave directly over the incision until it is healed. * DO NOT IMMERSE THE INCISION IN A TUB/POOL/etc. UNTIL HEALED. Restrictions: * Do not drive for at least one week or if you are still taking any narcotic pain medication. * Do not lift anything heavier than a gallon of milk for one week after going home. Possible Complications: * Numbness - It is normal to have some numbness around the incision. Numbness can extend beyond the incision to areas of the neck, ear and face. The numbness is due to bruising of nerves during the surgery and will gradually improve over a period of months. * Hoarseness/Difficulty Speaking and Swallowing - The bruising of nerves in the neck can also cause a hoarse voice, difficulty speaking or swallowing. This may improve over time, HOWEVER, if it continues for more than a few days please contact our office ([phone]). * Excessive Swelling - There will be some swelling immediately after surgery which usually resolves within one week. If you notice that the swelling is getting worse, notify your surgeon ([phone]). * Drainage/Bleeding - If there is any drainage or bleeding, it should be a very small amount (less than a teaspoon per day). If you have excessive bleeding or drainage from the incision, call your surgeon ([phone]) right away. ACTIVATION OF EMERGENCY MEDICAL SYSTEM: Call 911, immediately, if you experience any of the following: Warning Signs and Symptoms of Stroke: * Sudden numbness or weakness of the face, arm or leg, especially on one side of the body * Sudden confusion, trouble speaking or understanding * Sudden trouble seeing in one or both eyes * Sudden trouble walking, dizziness, loss of balance or coordination * Sudden severe headache with no cause Do not delay calling 911 if you experience any warning signs or symptoms of a stroke. Delay in seeking medical attention may affect what treatments can be given to you. Risk Factors for Stroke: You can reduce your chances of stroke by working with your medical provider to adopt a healthy lifestyle. Some specific ways to lower your chance of stroke are: * If you are a smoker, now is the time to stop smoking cigarettes * If you are diabetic, improve the control of your blood sugars * Avoid excessive amounts of alcohol * Control high blood pressure * Lose weight if you are overweight * Be sure to lead an active lifestyle * Eat a healthy diet low in salt, cholesterol and fat You should know about other risk factors for stroke that you are unable to control. These include: * Age 55 years or older * Male gender * Certain racial groups: , or / * Family History of Stroke, Mini stroke or Heart Attack * Sickle Cell Disease You will be receiving a call from the Vascular Surgery Nurse after you are discharged. FOLLOW UP VISIT: It is important for you to keep your follow up appointments with your medical provider. Keep any scheduled doctor appointments. Call [phone] to schedule a follow up appointment if one not already scheduled. Addtl Hotel Sales Manager Provider Instructions: We added carvedilol to your medication regimen as your blood pressure was high in the hospital. We sent a 30-day script to your pharmacy, [facility] in [place], [place]. Please take it two times per day (morning and night). Follow your blood pressures at home and talk with your parts professional or PCP about how your blood pressure is doing at home. Pending Studies at Discharge: No Stand-Alone Forms: My [facility] [employer], Smoking Cessation Medications and DC Order Prescriptions: New carvedilol 6.25 mg tablet 6.25 mg PO BID Qty: 60 RF: 0 Continued (DME) OneTouch Verio strip See Dose Instructions .ROUTE .MEDSUPPLY Qty: 100 RF: 3 gabapentin 400 mg capsule 400 mg PO TID Qty: 270 RF: 3 (DME) lancets [OneTouch Delica Lancets] 33 gauge misc See Dose Instructions .ROUTE .MEDSUPPLY Qty: 100 RF: 3 albuterol sulfate [ProAir HFA] 90 mcg/actuation HFA aerosol inhaler 2 puffs inhalation Q4H PRN (Reason: shortness of breath) Qty: 18 RF: 5 isosorbide mononitrate 60 mg tablet extended release 24 hr 90 mg PO QAM Qty: 45 RF: 11 aspirin [Aspirin Low Dose] 81 mg Tablet,Delayed Release (Dr/Ec) 81 mg PO QAM RF: 0 omeprazole 40 mg capsule,delayed release(DR/EC) 40 mg PO QAM RF: 0 citalopram 20 mg tablet 20 mg PO QAM RF: 0 magnesium oxide 400 mg (241.3 mg magnesium) tablet 400 mg PO QAM RF: 0 Stiolto Respimat 2.5-2.5 mcg/actuation mist 2 puff inhalation QPM RF: 0 No Action glimepiride 1 mg tablet See Rx Instructions PO DAILY RF: 0 Discharge Orders: Discharge Order (Routine); Ordered 07/19/19 Ordered By: Roberto Carlos Felipe Admission Data Admit Date/Time: 07/13/19 11:06 Attending Provider: Roberto Carlos Felipe Admit Provider: Roberto Carlos Felipe Primary Care Provider: Matt Mckeon Other Providers: Patel Fleming ; Ena Mckeon ; Paty Baron ; Arnel Guthrie ; Tito Hawley ; Radha Barreto ; Jovanni Barbosa ; Russ Francisco ; Angel Baig ; Shwetha Steward ; Cassandra Whipple ; Corine Justice ; Coyd Alcazar ; Erendira Hayes ; Johan Almanzar ; Rafy Oviedo ; Ena Briggs ; Shukri Craig ; Kaya Robledo ; Onesimo Santiago ; Valdemar Cardenas ; Arnel Trujillo ; David Pulido ; Vivi Day ; Tim Varner ; Pal Cooper ; Lexis Muro ; Ezequiel Rivas ; Thomas Briscoe ; Mihir Burnett ; Justen Salcido. Other Interventions: Discharge Summary Assessment (RN) Last Done: 07/19/19 14:43 DC Date/Time DO NOT enter until pt leaves facility: 07/19/19 15:45
== END 2019-07-19 15:45 | disposition home or self-care (01) | DRG 39 ==
LOC: ASU 07:34 → 1E 11:06 → 2S 07-14 13:26 → 3W 07-16 13:15